=== PATIENT | female | born 1930 | race Caucasian/White ===

== ENCOUNTER 2016-03-14 11:09 | Inpatient (IN) | payer OTHER ==
[~2016-03-14] VITALS: Ht 162.6 cm; Wt 44.4 kg
[~2016-03-14 11:09] MED LIST: CLEOCIN300 MG PO; OXYCODONE HCL5 MG PO
[2016-03-14 12:09] LABS: EOSINOPHIL (%) 1.9 % (0-5); EOSINOPHIL COUNT 0.1 K/uL (0-0.3); LYMPHOCYTE COUNT 0.6 K/uL (1.0-2.8); MCH 30.6 PG (29.0-34.0); MCHC 30.7 G/DL (30.0-36.0); MCV 99.7 FL (83-99); MEAN PLAT.VOLUME 9.7 uM^3 (9.5-12.4); MONOCYTE (%) 9.2 % (3-12); MONOCYTE COUNT 0.5 K/uL (0-0.8); NEUTROPHIL (%) 76.2 % (45-76); PLATELET COUNT 212 K/uL (156-360); RBC DIS.WIDTH-CV 13.5 % (11.8-14.6); RBC DIS.WIDTH-SD 47.1 % (39-53); RED BLOOD COUNT 3.01 M/uL (3.80-5.20); WHITE BLOOD COUNT 5.2 K/uL (4.1-10.2)
[2016-03-14 12:28] LABS: CHLORIDE 117 mEq/L (99-109); POTASSIUM 5.2 mEq/L (3.7-5.4); SODIUM 140 mEq/L (136-147)
[2016-03-14 12:30] LABS: GLUCOSE 122 mg/dL (70-99)
[2016-03-14 12:31] LABS: ANION GAP 11 MEQ/L (2-14)
[2016-03-14 12:33] LABS: GFR ESTIMATE (CALCULATED) 11 mL/min/
[2016-03-14 12:34] LABS: UREA NITROGEN (BUN) 70 mg/dL (9-23)
[2016-03-14] MEDS ORDERED: TRAMADOL HCL50 MG PO (13:03)
[2016-03-14] MEDS ORDERED: METOPROLOL SUCC25 MG PO (13:04)
[2016-03-14] MEDS ORDERED: AMITRIPTYLINE H10 MG PO (13:04)
[2016-03-14] MEDS ORDERED: ROPINIROLE HC0.25 MG PO (13:04)
[2016-03-14] MEDS ORDERED: GABAPENTIN100 MG PO (13:04)
[2016-03-14] MEDS ORDERED: LASIX20 MG PO (13:05)
[2016-03-14] MEDS ORDERED: SYMBICORT60 INHALAT IH (13:07)
[2016-03-14] MEDS ORDERED: LOTENSIN10 MG PO (13:07)
[2016-03-14] MEDS ORDERED: PROCARDIA XL30 MG PO (13:07)
[2016-03-14] MEDS ORDERED: ATORVASTATIN CA20 MG PO (13:08)
[2016-03-14] MEDS ORDERED: WELCHOL625 MG PO (13:08)
[2016-03-14 13:59] LABS: ADD MIUA? YES; BILIRUBIN NEGATIVE; BLOOD TRACE; COLOR YELLOW ((YELLOW)); GLUCOSE (STRIP) NEGATIVE; KETONES NEGATIVE; LEUKOCYTES LARGE; NITRITE POSITIVE; PROTEIN (STRIP) 30; SPECIFIC GRAVITY 1.018 (1.000-1.030); UROBILINOGEN 0.2 MG/DL (0.2-1.0)
[2016-03-14 14:23] LABS: BACTERIA 1+; CASTS NONE SEEN /LPF; CRYSTALS NONE SEEN; EPITHELIAL CELLS RARE; MUCUS NONE SEEN; RED BLOOD CELLS RARE /HPF (0-5); WHITE BLOOD CELLS TNTC /HPF (0-5)
[2016-03-14 16:07] VITALS: BP 164/69
[2016-03-14 19:41] VITALS: BP 164/73
[2016-03-14 23:43] VITALS: BP 167/67
[2016-03-15 03:45] VITALS: BP 133/65
[2016-03-15 07:23] LABS: EOSINOPHIL (%) 2.7 % (0-5); EOSINOPHIL COUNT 0.1 K/uL (0-0.3); HEMATOCRIT 27.9 % (36.0-46.0); IMMATURE GRANULOCYTE (%) 0.2 % (0.0-0.7); LYMPHOCYTE COUNT 1.3 K/uL (1.0-2.8); MCH 30.4 PG (29.0-34.0); MCHC 31.5 G/DL (30.0-36.0); MCV 96.5 FL (83-99); MEAN PLAT.VOLUME 9.9 uM^3 (9.5-12.4); MONOCYTE (%) 13.8 % (3-12); MONOCYTE COUNT 0.6 K/uL (0-0.8); NEUTROPHIL (%) 53.9 % (45-76); NEUTROPHIL COUNT 2.4 K/uL (1.8-6.4); PLATELET COUNT 217 K/uL (156-360); RBC DIS.WIDTH-CV 13.5 % (11.8-14.6); RBC DIS.WIDTH-SD 47.8 % (39-53); RED BLOOD COUNT 2.89 M/uL (3.80-5.20); WHITE BLOOD COUNT 4.5 K/uL (4.1-10.2)
[2016-03-15 07:47] LABS: ANION GAP 10 MEQ/L (2-14); CHLORIDE 112 MEQ/L (99-109); GLUCOSE 102 mg/dL (70-99); POTASSIUM 4.5 MEQ/L (3.7-5.4); SAMPLE HEMOLYSIS CHECK 0; SAMPLE ICTERIC CHECK 0; SAMPLE LIPEMIA CHECK 0; SODIUM 143 MEQ/L (136-147); UREA NITROGEN (BUN) 59 mg/dL (9-23)
[2016-03-15 07:48] LABS: GFR ESTIMATE (CALCULATED) 15 mL/min/
[2016-03-15 08:16] VITALS: BP 177/76
[2016-03-15 10:29] LABS: VANCOMYCIN, TROUGH 10.4 MCG/ML (10-20)
[2016-03-15 11:56] VITALS: BP 132/73
[2016-03-15 17:22] VITALS: BP 148/72
[2016-03-15 19:38] VITALS: BP 155/68
[2016-03-15 23:27] VITALS: BP 148/66
[2016-03-16 03:37] VITALS: BP 141/62
[2016-03-16 06:05] VITALS: BP 147/65
[2016-03-16 06:36] LABS: EOSINOPHIL (%) 0.4 % (0-5); HEMATOCRIT 26.2 % (36.0-46.0); LYMPHOCYTE COUNT 0.9 K/uL (1.0-2.8); MCH 30.7 PG (29.0-34.0); MCHC 32.1 G/DL (30.0-36.0); MCV 95.6 FL (83-99); MEAN PLAT.VOLUME 9.7 uM^3 (9.5-12.4); MONOCYTE COUNT 0.6 K/uL (0-0.8); NEUTROPHIL (%) 72.3 % (45-76); PLATELET COUNT 208 K/uL (156-360); RBC DIS.WIDTH-CV 13.4 % (11.8-14.6); RBC DIS.WIDTH-SD 46.7 % (39-53); RED BLOOD COUNT 2.74 M/uL (3.80-5.20); WHITE BLOOD COUNT 5.5 K/uL (4.1-10.2)
[2016-03-16 06:59] LABS: ANION GAP 9 MEQ/L (2-14); CHLORIDE 106 MEQ/L (99-109); GLUCOSE 147 mg/dL (70-99); POTASSIUM 3.9 MEQ/L (3.7-5.4); SAMPLE HEMOLYSIS CHECK 0; SAMPLE ICTERIC CHECK 0; SAMPLE LIPEMIA CHECK 0; SODIUM 143 MEQ/L (136-147); UREA NITROGEN (BUN) 56 mg/dL (9-23)
[2016-03-16 07:00] LABS: GFR ESTIMATE (CALCULATED) 18 mL/min/; VANCOMYCIN, TROUGH 15.3 MCG/ML (10-20)
[2016-03-16 11:47] VITALS: BP 157/76
[2016-03-16 15:32] VITALS: BP 151/70
[2016-03-16 19:24] VITALS: BP 168/71
[2016-03-17] VITALS (8 sets, daily range): BP systolic 130–175; BP diastolic 67–80
[2016-03-17 06:15] LABS: ANION GAP 9 MEQ/L (2-14); CHLORIDE 105 MEQ/L (99-109); GFR ESTIMATE (CALCULATED) 20 mL/min/; GLUCOSE 104 mg/dL (70-99); IRON 27 MCG/DL (35-150); POTASSIUM 4.1 MEQ/L (3.7-5.4); SAMPLE HEMOLYSIS CHECK 0; SAMPLE ICTERIC CHECK 0; SAMPLE LIPEMIA CHECK 0; SODIUM 142 MEQ/L (136-147); UREA NITROGEN (BUN) 44 mg/dL (9-23); VANCOMYCIN, TROUGH 19.6 MCG/ML (10-20)
[2016-03-18 04:10] VITALS: BP 176/78
[2016-03-18 06:48] VITALS: BP 169/85
[2016-03-18 07:28] LABS: EOSINOPHIL (%) 2.4 % (0-5); EOSINOPHIL COUNT 0.1 K/uL (0-0.3); HEMATOCRIT 28.1 % (36.0-46.0); IMMATURE GRANULOCYTE (%) 0.2 % (0.0-0.7); LYMPHOCYTE COUNT 0.9 K/uL (1.0-2.8); MONOCYTE (%) 11.7 % (3-12); MONOCYTE COUNT 0.6 K/uL (0-0.8); NEUTROPHIL COUNT 3.4 K/uL (1.8-6.4); PLATELET COUNT 218 K/uL (156-360); RBC DIS.WIDTH-CV 13.6 % (11.8-14.6); RBC DIS.WIDTH-SD 49.8 % (39-53); RED BLOOD COUNT 2.81 M/uL (3.80-5.20)
[2016-03-18 07:33] LABS: ANION GAP 9 MEQ/L (2-14); CHLORIDE 104 MEQ/L (99-109); GFR ESTIMATE (CALCULATED) 21 mL/min/; GLUCOSE 94 mg/dL (70-99); POTASSIUM 4.7 MEQ/L (3.7-5.4); SAMPLE HEMOLYSIS CHECK 0; SAMPLE ICTERIC CHECK 0; SAMPLE LIPEMIA CHECK 0; SODIUM 142 MEQ/L (136-147); UREA NITROGEN (BUN) 38 mg/dL (9-23)
[2016-03-18 12:00] VITALS: BP 160/82
[2016-03-18 16:30] VITALS: BP 168/72
[2016-03-18 19:48] VITALS: BP 142/63
[2016-03-19] VITALS (7 sets, daily range): BP systolic 127–160; BP diastolic 60–89
[2016-03-19 07:13] LABS: EOSINOPHIL (%) 2.5 % (0-5); EOSINOPHIL COUNT 0.1 K/uL (0-0.3); HEMATOCRIT 29.4 % (36.0-46.0); LYMPHOCYTE COUNT 0.6 K/uL (1.0-2.8); MCH 30.2 PG (29.0-34.0); MCHC 30.3 G/DL (30.0-36.0); MCV 99.7 FL (83-99); MEAN PLAT.VOLUME 9.7 uM^3 (9.5-12.4); MONOCYTE (%) 12.1 % (3-12); MONOCYTE COUNT 0.5 K/uL (0-0.8); NEUTROPHIL (%) 71.7 % (45-76); NEUTROPHIL COUNT 3.2 K/uL (1.8-6.4); PLATELET COUNT 211 K/uL (156-360); RBC DIS.WIDTH-CV 13.5 % (11.8-14.6); RBC DIS.WIDTH-SD 49.4 % (39-53); RED BLOOD COUNT 2.95 M/uL (3.80-5.20); WHITE BLOOD COUNT 4.5 K/uL (4.1-10.2)
[2016-03-19 07:42] LABS: ALKALINE PHOSPHATASE 83 IU/L (3-129); ANION GAP 10 MEQ/L (2-14); ANION GAP 8 MEQ/L (2-14); CHLORIDE 102 MEQ/L (99-109); GFR ESTIMATE (CALCULATED) 21 mL/min/; GFR ESTIMATE (CALCULATED) 24 mL/min/; GLUCOSE 92 mg/dL (70-99); GLUCOSE 98 mg/dL (70-99); POTASSIUM 4.2 MEQ/L (3.7-5.4); SAMPLE HEMOLYSIS CHECK 0; SAMPLE ICTERIC CHECK 0; SAMPLE LIPEMIA CHECK 0; SODIUM 139 MEQ/L (136-147); TOTAL BILIRUBIN 0.3 MG/DL (0.0-1.0); UREA NITROGEN (BUN) 35 mg/dL (9-23); UREA NITROGEN (BUN) 36 mg/dL (9-23)
[2016-03-19 10:26] LABS: BASE EXCESS 5.5 mEq/L (-3 to +3); BICARBONATE 29.9 mEq/L (22-26); CARBOXY HGB 0 % (0-5); COMMENTS - BLOOD GASES A+C+; DEVICE HFNC; METHEMOGLOBIN 0.5 % (0-1.5); O2 FLOW 8 L/MIN; PCO2 42 mm Hg (35-45); PO2 77 mm Hg (80-100); SITE RR; pH 7.46 (7.35-7.45)
[2016-03-20 03:54] VITALS: BP 140/66
[2016-03-20 07:35] LABS: EOSINOPHIL (%) 5.1 % (0-5); EOSINOPHIL COUNT 0.2 K/uL (0-0.3); HEMATOCRIT 29.5 % (36.0-46.0); LYMPHOCYTE COUNT 0.7 K/uL (1.0-2.8); MCH 30.7 PG (29.0-34.0); MCHC 30.8 G/DL (30.0-36.0); MCV 99.7 FL (83-99); MEAN PLAT.VOLUME 10.3 uM^3 (9.5-12.4); MONOCYTE (%) 12.3 % (3-12); MONOCYTE COUNT 0.6 K/uL (0-0.8); NEUTROPHIL (%) 66.6 % (45-76); PLATELET COUNT 225 K/uL (156-360); RBC DIS.WIDTH-CV 13.5 % (11.8-14.6); RED BLOOD COUNT 2.96 M/uL (3.80-5.20); WHITE BLOOD COUNT 4.5 K/uL (4.1-10.2)
[2016-03-20 08:01] LABS: ALKALINE PHOSPHATASE 86 IU/L (3-129); ANION GAP 10 MEQ/L (2-14); CHLORIDE 101 MEQ/L (99-109); GFR ESTIMATE (CALCULATED) 20 mL/min/; GLUCOSE 105 mg/dL (70-99); POTASSIUM 4.1 MEQ/L (3.7-5.4); SAMPLE HEMOLYSIS CHECK 0; SAMPLE ICTERIC CHECK 0; SAMPLE LIPEMIA CHECK 0; SODIUM 140 MEQ/L (136-147); TOTAL BILIRUBIN 0.3 MG/DL (0.0-1.0); UREA NITROGEN (BUN) 38 mg/dL (9-23)
[2016-03-20 08:06] VITALS: BP 128/70
[2016-03-20 10:50] VITALS: BP 133/63
[2016-03-20 16:19] VITALS: BP 140/69
[2016-03-20 17:58] VITALS: BP 154/67
[2016-03-20 23:31] VITALS: BP 138/71
[2016-03-21 03:39] VITALS: BP 155/69
[2016-03-21 06:13] LABS: EOSINOPHIL (%) 4.9 % (0-5); EOSINOPHIL COUNT 0.2 K/uL (0-0.3); HEMATOCRIT 27.2 % (36.0-46.0); IMMATURE GRANULOCYTE (%) 0.2 % (0.0-0.7); LYMPHOCYTE COUNT 0.8 K/uL (1.0-2.8); MCH 30.3 PG (29.0-34.0); MCHC 30.5 G/DL (30.0-36.0); MCV 99.3 FL (83-99); MEAN PLAT.VOLUME 10.2 uM^3 (9.5-12.4); MONOCYTE (%) 11.2 % (3-12); MONOCYTE COUNT 0.6 K/uL (0-0.8); NEUTROPHIL COUNT 3.3 K/uL (1.8-6.4); PLATELET COUNT 219 K/uL (156-360); RBC DIS.WIDTH-CV 13.6 % (11.8-14.6); RED BLOOD COUNT 2.74 M/uL (3.80-5.20); WHITE BLOOD COUNT 4.9 K/uL (4.1-10.2)
[2016-03-21 06:45] LABS: ALKALINE PHOSPHATASE 85 IU/L (3-129); ANION GAP 9 MEQ/L (2-14); CHLORIDE 102 MEQ/L (99-109); GFR ESTIMATE (CALCULATED) 19 mL/min/; GLUCOSE 95 mg/dL (70-99); POTASSIUM 4.1 MEQ/L (3.7-5.4); SAMPLE HEMOLYSIS CHECK 0; SAMPLE ICTERIC CHECK 0; SAMPLE LIPEMIA CHECK 0; SODIUM 138 MEQ/L (136-147); TOTAL BILIRUBIN 0.3 MG/DL (0.0-1.0); UREA NITROGEN (BUN) 46 mg/dL (9-23)
[2016-03-21 07:39] VITALS: BP 156/70
[2016-03-21 11:53] VITALS: BP 148/69
[2016-03-21 16:00] VITALS: BP 152/70
[2016-03-21 19:23] VITALS: BP 154/69
[2016-03-22] VITALS: BP 158/74
[2016-03-22 03:43] VITALS: BP 152/72
[2016-03-22 07:09] LABS: ANION GAP 9 MEQ/L (2-14); CHLORIDE 104 MEQ/L (99-109); GFR ESTIMATE (CALCULATED) 19 mL/min/; GLUCOSE 94 mg/dL (70-99); POTASSIUM 4.2 MEQ/L (3.7-5.4); SAMPLE HEMOLYSIS CHECK 0; SAMPLE ICTERIC CHECK 0; SAMPLE LIPEMIA CHECK 0; SODIUM 141 MEQ/L (136-147); UREA NITROGEN (BUN) 47 mg/dL (9-23)
[2016-03-22 07:48] VITALS: BP 146/64
[2016-03-22 09:00] LABS: HEMATOCRIT 27.7 % (36.0-46.0); MCH 30.5 PG (29.0-34.0); MCV 101.8 FL (83-99); MEAN PLAT.VOLUME 10.1 uM^3 (9.5-12.4); PLATELET COUNT 232 K/uL (156-360); RBC DIS.WIDTH-SD 50.5 % (39-53); RED BLOOD COUNT 2.72 M/uL (3.80-5.20); WHITE BLOOD COUNT 4.5 K/uL (4.1-10.2)
[2016-03-22 11:28] VITALS: BP 156/67
[2016-03-22 15:42] VITALS: BP 159/72
[2016-03-22 19:30] VITALS: BP 152/70
[2016-03-23] VITALS: BP 148/77
[2016-03-23 04:00] VITALS: BP 151/67
[2016-03-23 07:19] LABS: ANION GAP 9 MEQ/L (2-14); CHLORIDE 103 MEQ/L (99-109); GFR ESTIMATE (CALCULATED) 20 mL/min/; GLUCOSE 96 mg/dL (70-99); POTASSIUM 4.3 MEQ/L (3.7-5.4); SAMPLE HEMOLYSIS CHECK 0; SAMPLE ICTERIC CHECK 0; SAMPLE LIPEMIA CHECK 0; SODIUM 139 MEQ/L (136-147); UREA NITROGEN (BUN) 47 mg/dL (9-23)
[2016-03-23 07:37] VITALS: BP 143/67
[2016-03-23 11:04] VITALS: BP 144/63
[2016-03-23 15:42] VITALS: BP 181/76
[2016-03-23 20:00] VITALS: BP 165/70
[2016-03-24 00:14] VITALS: BP 177/79
[2016-03-24 04:00] VITALS: BP 166/79
[2016-03-24 08:02] VITALS: BP 144/67
[2016-03-24 09:25] LABS: HEMATOCRIT 32.1 % (36.0-46.0); MCH 30.6 PG (29.0-34.0); MCHC 30.2 G/DL (30.0-36.0); MCV 101.3 FL (83-99); MEAN PLAT.VOLUME 9.8 uM^3 (9.5-12.4); PLATELET COUNT 230 K/uL (156-360); RBC DIS.WIDTH-CV 14.3 % (11.8-14.6); RBC DIS.WIDTH-SD 50.7 % (39-53); RED BLOOD COUNT 3.17 M/uL (3.80-5.20); WHITE BLOOD COUNT 5.7 K/uL (4.1-10.2)
[2016-03-24 09:47] LABS: ANION GAP 11 MEQ/L (2-14); CHLORIDE 104 MEQ/L (99-109); GFR ESTIMATE (CALCULATED) 20 mL/min/; SAMPLE HEMOLYSIS CHECK 0; SAMPLE ICTERIC CHECK 0; SAMPLE LIPEMIA CHECK 0; SODIUM 140 MEQ/L (136-147); UREA NITROGEN (BUN) 53 mg/dL (9-23)
[2016-03-24 09:48] LABS: GLUCOSE 186 mg/dL (70-99)
[2016-03-24 10:54] VITALS: BP 146/67
[2016-03-24] MEDS ORDERED: CEPHALEXIN500 MG PO (13:57)
[2016-03-24] MEDS ORDERED: SPIRIVA RESPIMAT4 GM IH (13:57)
[2016-03-24] MEDS ORDERED: ELIQUIS2.5 MG PO (13:57)
[2016-03-24] MEDS ORDERED: FUROSEMIDE20 MG PO (13:57)
[2016-03-24 15:09] VITALS: BP 153/66
== END 2016-03-24 16:10 | disposition home or self-care (01) | DRG 682 ==
LOC: EME 11:09 → EDOF 12:46 → 2EAST 12:46 → EDOF 12:46 → 2EAST 15:40 → 5SOUTH 03-20 17:20
PROVIDERS: Emergency Medicine; Hospitalist; Internal Medicine; Internal Medicine Nephrology
PROC: 0HDLXZZ Extraction of Left Lower Leg Skin, External Approach (ICD-10-PCS; principal; 2016-03-15)
DX: N17.0 Acute kidney failure with tubular necrosis (principal); J96.01 Acute respiratory failure with hypoxia; N39.0 Urinary tract infection, site not specified; E87.2 Acidosis; L03.116 Cellulitis of left lower limb; I50.22 Chronic systolic (congestive) heart failure; E44.0 Moderate protein-calorie malnutrition; Z68.1 Body mass index [BMI] 19.9 or less, adult; B95.61 Methicillin susceptible Staphylococcus aureus infection as the cause of diseases classified elsewhere; E86.0 Dehydration; T46.4X5A Adverse effect of angiotensin-converting-enzyme inhibitors, initial encounter; S80.12XA Contusion of left lower leg, initial encounter; L89.310 Pressure ulcer of right buttock, unstageable; I48.0 Paroxysmal atrial fibrillation; I35.0 Nonrheumatic aortic (valve) stenosis; I27.2 Other secondary pulmonary hypertension; J44.9 Chronic obstructive pulmonary disease, unspecified; I12.9 Hypertensive chronic kidney disease with stage 1 through stage 4 chronic kidney disease, or unspecified chronic kidney disease; N18.3 Chronic kidney disease, stage 3 (moderate); D63.1 Anemia in chronic kidney disease; N28.1 Cyst of kidney, acquired; E11.22 Type 2 diabetes mellitus with diabetic chronic kidney disease; E78.5 Hyperlipidemia, unspecified; M19.90 Unspecified osteoarthritis, unspecified site; Z66 Do not resuscitate; Z87.891 Personal history of nicotine dependence; Z93.3 Colostomy status
CPT/HCPCS: 36415; 36600; 71010; 71020; 71250; 73718; 76770; 78582; 80048; 80053; 80069; 80202; 81003; 82570; 82607; 82746; 82803; 83540; 83735; 83970; 84100; 84156; 84466; 84550; 85025; 85027; 86038; 87040; 87070; 87075; 87077; 87147; 87186; 87205; 93306; 93971; 94010; 94640; 94640 76; 94760; 94799; 97530 GO; 99202; 99281; 99285; A9540; A9567; J0696; J1644; J1756; J1940; J2270; J2405; J3370; J7030; J7050; J7070

== ENCOUNTER 2016-03-30 20:24 | Inpatient (IN) | payer OTHER ==
[~2016-03-30] VITALS: Ht 162.6 cm; Wt 33.8 kg
[~2016-03-30 20:24] MED LIST changes: +AMITRIPTYLINE H10 MG PO; +ATORVASTATIN CA20 MG PO; +CEPHALEXIN500 MG PO; +ELIQUIS2.5 MG PO; +FUROSEMIDE20 MG PO; +GABAPENTIN100 MG PO; +LASIX20 MG PO; +LOTENSIN10 MG PO; +METOPROLOL SUCC25 MG PO; +PROCARDIA XL30 MG PO; +ROPINIROLE HC0.25 MG PO; +SPIRIVA RESPIMAT4 GM IH; +SYMBICORT60 INHALAT IH; +TRAMADOL HCL50 MG PO; +WELCHOL625 MG PO
[2016-03-30 20:56] LABS: HEMATOCRIT 34.1 % (36.0-46.0); MCH 30.8 PG (29.0-34.0); MCHC 30.2 G/DL (30.0-36.0); MCV 102.1 FL (83-99); MEAN PLAT.VOLUME 9.1 uM^3 (9.5-12.4); PLATELET COUNT 294 K/uL (156-360); RBC DIS.WIDTH-CV 14.9 % (11.8-14.6); RBC DIS.WIDTH-SD 53.2 % (39-53); RED BLOOD COUNT 3.34 M/uL (3.80-5.20); WHITE BLOOD COUNT 8.8 K/uL (4.1-10.2)
[2016-03-30 21:17] LABS: CHLORIDE 112 mEq/L (99-109); SODIUM 139 mEq/L (136-147)
[2016-03-30 21:18] LABS: GLUCOSE 174 mg/dL (70-99)
[2016-03-30 21:19] LABS: POTASSIUM 5.5 mEq/L (3.7-5.4)
[2016-03-30 21:20] LABS: ANION GAP 9 MEQ/L (2-14)
[2016-03-30 21:22] LABS: GFR ESTIMATE (CALCULATED) 16 mL/min/
[2016-03-30 21:23] LABS: UREA NITROGEN (BUN) 67 mg/dL (9-23)
[2016-03-31 02:20] LABS: ADD MIUA? YES; BILIRUBIN NEGATIVE; BLOOD SMALL; COLOR STRAW ((YELLOW)); GLUCOSE (STRIP) NEGATIVE; KETONES NEGATIVE; LEUKOCYTES NEGATIVE; NITRITE NEGATIVE; PROTEIN (STRIP) NEGATIVE; SPECIFIC GRAVITY 1.009 (1.000-1.030); UROBILINOGEN 0.2 MG/DL (0.2-1.0)
[2016-03-31 02:48] LABS: BACTERIA RARE /HPF; EPITHELIAL CELLS RARE /HPF; MUCUS TRACE /LPF; RED BLOOD CELLS 0-5 /HPF (0-5); WHITE BLOOD CELLS 0-5 /HPF (0-5)
[2016-03-31 02:53] LABS: TROP-I INTERPRETATION NEGATIVE; TROPONIN-I 0.11 ng/mL (0.0-0.30)
[2016-03-31 08:15] LABS: EOSINOPHIL (%) 0 % (0-5); HEMATOCRIT 28.6 % (36.0-46.0); LYMPHOCYTE COUNT 0.3 K/uL (1.0-2.8); MCHC 30.4 G/DL (30.0-36.0); MCV 101.8 FL (83-99); MEAN PLAT.VOLUME 9.7 uM^3 (9.5-12.4); MONOCYTE (%) 5.1 % (3-12); MONOCYTE COUNT 0.2 K/uL (0-0.8); NEUTROPHIL (%) 84.9 % (45-76); NEUTROPHIL COUNT 2.6 K/uL (1.8-6.4); PLATELET COUNT 226 K/uL (156-360); RBC DIS.WIDTH-CV 14.6 % (11.8-14.6); RBC DIS.WIDTH-SD 52.2 % (39-53); RED BLOOD COUNT 2.81 M/uL (3.80-5.20); WHITE BLOOD COUNT 3.1 K/uL (4.1-10.2)
[2016-03-31 08:55] LABS: ALKALINE PHOSPHATASE 100 IU/L (3-129); ANION GAP 9 MEQ/L (2-14); CHLORIDE 110 MEQ/L (99-109); GFR ESTIMATE (CALCULATED) 16 mL/min/; GLUCOSE 235 mg/dL (70-99); POTASSIUM 5.3 MEQ/L (3.7-5.4); SAMPLE HEMOLYSIS CHECK 0; SAMPLE ICTERIC CHECK 0; SAMPLE LIPEMIA CHECK 0; SODIUM 138 MEQ/L (136-147); TOTAL BILIRUBIN 0.3 MG/DL (0.0-1.0); UREA NITROGEN (BUN) 71 mg/dL (9-23)
[2016-03-31 09:01] LABS: TROP-I INTERPRETATION INDETERMINATE; TROPONIN-I 0.47 ng/mL (0.0-0.30)
[2016-03-31 14:40] LABS: TROP-I INTERPRETATION POSITIVE
[2016-03-31 14:45] LABS: TROPONIN-I 0.94 ng/mL (0.0-0.30)
[2016-03-31 16:15] VITALS: BP 164/68; BP 164/86
[2016-03-31 20:00] VITALS: BP 177/74
[2016-04-01 00:30] VITALS: BP 159/70
[2016-04-01 04:05] VITALS: BP 175/77
[2016-04-01 09:00] VITALS: BP 196/90
[2016-04-01 10:39] LABS: ANION GAP 9 MEQ/L (2-14); CHLORIDE 109 MEQ/L (99-109); GFR ESTIMATE (CALCULATED) 19 mL/min/; GLUCOSE 285 mg/dL (70-99); POTASSIUM 4.4 MEQ/L (3.7-5.4); SAMPLE HEMOLYSIS CHECK 0; SAMPLE ICTERIC CHECK 0; SAMPLE LIPEMIA CHECK 0; SODIUM 140 MEQ/L (136-147); UREA NITROGEN (BUN) 71 mg/dL (9-23)
[2016-04-01 11:44] LABS: EOSINOPHIL (%) 0 % (0-5); HEMATOCRIT 26.9 % (36.0-46.0); IMMATURE GRANULOCYTE (%) 0.2 % (0.0-0.7); LYMPHOCYTE COUNT 0.3 K/uL (1.0-2.8); MEAN PLAT.VOLUME 9.8 uM^3 (9.5-12.4); MONOCYTE (%) 1.5 % (3-12); MONOCYTE COUNT 0.1 K/uL (0-0.8); NEUTROPHIL (%) 91.9 % (45-76); NEUTROPHIL COUNT 4.2 K/uL (1.8-6.4); PLATELET COUNT 233 K/uL (156-360); RBC DIS.WIDTH-CV 15.6 % (11.8-14.6); RBC DIS.WIDTH-SD 56.9 % (39-53); RED BLOOD COUNT 2.69 M/uL (3.80-5.20)
[2016-04-01 11:45] LABS: WHITE BLOOD COUNT 4.5 K/uL (4.1-10.2)
[2016-04-01 14:21] VITALS: BP 172/78
[2016-04-01 16:09] LABS: POINT-OF-CARE METER ID UU13113698
[2016-04-01 17:44] VITALS: BP 171/76
[2016-04-01 19:20] VITALS: BP 170/72
[2016-04-01 21:49] LABS: POINT-OF-CARE METER ID UU13113698
[2016-04-02] VITALS (7 sets, daily range): BP systolic 160–196; BP diastolic 73–86
[2016-04-02 07:06] LABS: EOSINOPHIL (%) 0 % (0-5); HEMATOCRIT 28.8 % (36.0-46.0); IMMATURE GRANULOCYTE (%) 0.2 % (0.0-0.7); LYMPHOCYTE COUNT 0.4 K/uL (1.0-2.8); MCH 31.1 PG (29.0-34.0); MCHC 30.9 G/DL (30.0-36.0); MCV 100.7 FL (83-99); MONOCYTE (%) 2.3 % (3-12); MONOCYTE COUNT 0.1 K/uL (0-0.8); NEUTROPHIL (%) 90.7 % (45-76); NEUTROPHIL COUNT 4.7 K/uL (1.8-6.4); PLATELET COUNT 243 K/uL (156-360); RBC DIS.WIDTH-CV 15.3 % (11.8-14.6); RED BLOOD COUNT 2.86 M/uL (3.80-5.20); WHITE BLOOD COUNT 5.2 K/uL (4.1-10.2)
[2016-04-02 07:15] LABS: ANION GAP 13 MEQ/L (2-14); CHLORIDE 109 MEQ/L (99-109); GFR ESTIMATE (CALCULATED) 21 mL/min/; GLUCOSE 164 mg/dL (70-99); MAGNESIUM 2.2 mg/dl (1.3-2.7); POTASSIUM 4.2 MEQ/L (3.7-5.4); SAMPLE HEMOLYSIS CHECK 0; SAMPLE ICTERIC CHECK 0; SAMPLE LIPEMIA CHECK 0; SODIUM 141 MEQ/L (136-147); UREA NITROGEN (BUN) 74 mg/dL (9-23)
[2016-04-02 08:22] LABS: POINT-OF-CARE METER ID UU13113698; POINT-OF-CARE USER ID ENVKC36
[2016-04-02 12:31] LABS: POINT-OF-CARE METER ID UU13113781; POINT-OF-CARE USER ID ENVKC36
[2016-04-02] MEDS ORDERED: ASPIR-LOW81 MG PO (17:39)
[2016-04-02] MEDS ORDERED: FUROSEMIDE20 MG PO ×2 (17:39)
[2016-04-02] MEDS ORDERED: LISINOPRIL5 MG PO (17:39)
[2016-04-02] MEDS ORDERED: CEPHALEXIN500 MG PO (17:39)
[2016-04-02] MEDS ORDERED: CARVEDILOL25 MG PO (17:39)
[2016-04-03 00:29] VITALS: BP 152/70
[2016-04-03 04:01] VITALS: BP 164/80
[2016-04-03 07:27] LABS: ANION GAP 12 MEQ/L (2-14); CHLORIDE 108 MEQ/L (99-109); GFR ESTIMATE (CALCULATED) 19 mL/min/; GLUCOSE 141 mg/dL (70-99); POTASSIUM 4.2 MEQ/L (3.7-5.4); SAMPLE HEMOLYSIS CHECK 0; SAMPLE ICTERIC CHECK 0; SAMPLE LIPEMIA CHECK 0; SODIUM 140 MEQ/L (136-147); UREA NITROGEN (BUN) 85 mg/dL (9-23)
[2016-04-03 09:11] VITALS: BP 186/78
[2016-04-03] MEDS ORDERED: PREDNISONE20 MG PO ×2 (12:02→12:03)
[2016-04-03 12:20] VITALS: BP 176/98
[2016-04-03] MEDS ORDERED: OXYGEN MC ×3 (12:34→14:39)
== END 2016-04-03 15:12 | disposition home or self-care (01) | DRG 189 ==
LOC: EME → EDBD 20:24 → EME 20:24 → EDOF 03-31 01:29 → 4EAST 03-31 01:29
PROVIDERS: Internal Medicine; Internal Medicine Nephrology; Physician Assistant; Student in an Organized Health Care Education/Training Program
DX: J96.01 Acute respiratory failure with hypoxia (principal); I50.21 Acute systolic (congestive) heart failure; N17.9 Acute kidney failure, unspecified; L03.115 Cellulitis of right lower limb; J44.1 Chronic obstructive pulmonary disease with (acute) exacerbation; L03.116 Cellulitis of left lower limb; I42.9 Cardiomyopathy, unspecified; N18.3 Chronic kidney disease, stage 3 (moderate); I12.9 Hypertensive chronic kidney disease with stage 1 through stage 4 chronic kidney disease, or unspecified chronic kidney disease; E87.5 Hyperkalemia; I48.0 Paroxysmal atrial fibrillation; I27.2 Other secondary pulmonary hypertension; D63.1 Anemia in chronic kidney disease; I35.0 Nonrheumatic aortic (valve) stenosis; N28.1 Cyst of kidney, acquired; R79.89 Other specified abnormal findings of blood chemistry; E11.22 Type 2 diabetes mellitus with diabetic chronic kidney disease; Z66 Do not resuscitate; Z51.5 Encounter for palliative care; Z87.891 Personal history of nicotine dependence
CPT/HCPCS: 71010; 80048; 80053; 81003; 82948; 83735; 83880; 84100; 84484; 85025; 85027; 93005; 94640; 94640 76; 94760; 94799; 99202; 99281; 99285; J0360; J1815; J1940; J2930; J7512

== ENCOUNTER 2016-05-06 10:08 | Inpatient (IN) | payer OTHER ==
[~2016-05-06] VITALS: Ht 162.6 cm; Wt 45.1 kg
[~2016-05-06 10:08] MED LIST changes: +ASPIR-LOW81 MG PO; +CARVEDILOL25 MG PO; +LISINOPRIL5 MG PO; +OXYGEN MC; +PREDNISONE20 MG PO
[2016-05-06 11:04] LABS: EOSINOPHIL (%) 1.4 % (0-5); EOSINOPHIL COUNT 0.1 K/uL (0-0.3); HEMATOCRIT 34.8 % (36.0-46.0); IMMATURE GRANULOCYTE (%) 0.2 % (0.0-0.7); INSTRUMENT ABS NEUTROPHIL CT 3.4 K/uL; LYMPHOCYTE COUNT 0.8 K/uL (1.0-2.8); MCH 31.1 PG (29.0-34.0); MCHC 29.3 G/DL (30.0-36.0); MCV 106.1 FL (83-99); MEAN PLAT.VOLUME 9.6 uM^3 (9.5-12.4); MONOCYTE (%) 11.2 % (3-12); MONOCYTE COUNT 0.6 K/uL (0-0.8); NEUTROPHIL COUNT 3.4 K/uL (1.8-6.4); PLATELET COUNT 163 K/uL (156-360); RBC DIS.WIDTH-SD 63.2 % (39-53); RED BLOOD COUNT 3.28 M/uL (3.80-5.20); WHITE BLOOD COUNT 4.9 K/uL (4.1-10.2)
[2016-05-06 11:14] LABS: CHLORIDE 116 mEq/L (99-109); SODIUM 141 mEq/L (136-147)
[2016-05-06 11:16] LABS: GLUCOSE 71 mg/dL (70-99)
[2016-05-06 11:17] LABS: ANION GAP 10 MEQ/L (2-14)
[2016-05-06 11:20] LABS: GFR ESTIMATE (CALCULATED) 13 mL/min/; UREA NITROGEN (BUN) 77 mg/dL (9-23)
[2016-05-06 11:33] LABS: POTASSIUM 6.2 mEq/L (3.7-5.4)
[2016-05-06] MEDS ORDERED: ELIQUIS2.5 MG PO (13:19)
[2016-05-06 13:20] LABS: POINT-OF-CARE METER ID UU13113702
[2016-05-06] MEDS ORDERED: FUROSEMIDE20 MG PO (13:21)
[2016-05-06] MEDS ORDERED: SANTYL30 GM TP (13:22)
[2016-05-06] MEDS ORDERED: PROCRIT10000 UNI1 IV (13:23)
[2016-05-06 14:45] VITALS: BP 210/72
[2016-05-06 15:55] VITALS: BP 190/96
[2016-05-06 17:30] VITALS: BP 172/88
[2016-05-06 18:29] LABS: ANION GAP 9 MEQ/L (2-14); CHLORIDE 117 MEQ/L (99-109); GFR ESTIMATE (CALCULATED) 15 mL/min/; POTASSIUM 5.7 MEQ/L (3.7-5.4); SAMPLE HEMOLYSIS CHECK 0; SAMPLE ICTERIC CHECK 0; SAMPLE LIPEMIA CHECK 0; SODIUM 144 MEQ/L (136-147); UREA NITROGEN (BUN) 70 mg/dL (9-23)
[2016-05-06 18:41] LABS: GLUCOSE 165 mg/dL (70-99)
[2016-05-06 19:51] VITALS: BP 185/82
[2016-05-06 20:16] VITALS: BP 165/88
[2016-05-06 23:36] VITALS: BP 166/78
[2016-05-07 03:28] VITALS: BP 168/78
[2016-05-07 07:11] VITALS: BP 196/68
[2016-05-07 08:30] VITALS: BP 180/80
[2016-05-07 08:57] LABS: EOSINOPHIL (%) 0.2 % (0-5); HEMATOCRIT 36.7 % (36.0-46.0); IMMATURE GRANULOCYTE (%) 0.2 % (0.0-0.7); INSTRUMENT ABS NEUTROPHIL CT 3.8 K/uL; LYMPHOCYTE COUNT 0.8 K/uL (1.0-2.8); MCH 30.8 PG (29.0-34.0); MCHC 28.9 G/DL (30.0-36.0); MCV 106.7 FL (83-99); MONOCYTE (%) 10.2 % (3-12); MONOCYTE COUNT 0.5 K/uL (0-0.8); NEUTROPHIL (%) 73.4 % (45-76); NEUTROPHIL COUNT 3.8 K/uL (1.8-6.4); PLATELET COUNT 164 K/uL (156-360); RBC DIS.WIDTH-SD 63.6 % (39-53); RED BLOOD COUNT 3.44 M/uL (3.80-5.20); WHITE BLOOD COUNT 5.2 K/uL (4.1-10.2)
[2016-05-07 09:22] LABS: ANION GAP 11 MEQ/L (2-14); CHLORIDE 112 MEQ/L (99-109); GFR ESTIMATE (CALCULATED) 15 mL/min/; GLUCOSE 135 mg/dL (70-99); POTASSIUM 5.2 MEQ/L (3.7-5.4); SAMPLE HEMOLYSIS CHECK 0; SAMPLE ICTERIC CHECK 0; SAMPLE LIPEMIA CHECK 0; SODIUM 143 MEQ/L (136-147); UREA NITROGEN (BUN) 66 mg/dL (9-23)
[2016-05-07 11:15] VITALS: BP 194/68
[2016-05-07 15:15] LABS: ADD MIUA? YES; BILIRUBIN NEGATIVE; BLOOD NEGATIVE; COLOR YELLOW ((YELLOW)); GLUCOSE (STRIP) 150; KETONES NEGATIVE; LEUKOCYTES TRACE; NITRITE NEGATIVE; PROTEIN (STRIP) NEGATIVE; UROBILINOGEN 0.2 MG/DL (0.2-1.0)
[2016-05-07 15:36] LABS: BACTERIA RARE /HPF; EPITHELIAL CELLS RARE /HPF; HYALINE CASTS 0-5 /LPF; MUCUS TRACE /LPF; RED BLOOD CELLS 0-5 /HPF (0-5); WHITE BLOOD CELLS 0-5 /HPF (0-5)
[2016-05-07 15:40] VITALS: BP 188/76
[2016-05-07 19:39] VITALS: BP 168/80
[2016-05-08 00:19] VITALS: BP 161/74
[2016-05-08 04:05] VITALS: BP 178/80
[2016-05-08 08:00] VITALS: BP 150/72
[2016-05-08 08:38] LABS: EOSINOPHIL (%) 1.3 % (0-5); EOSINOPHIL COUNT 0.1 K/uL (0-0.3); HEMATOCRIT 32.8 % (36.0-46.0); INSTRUMENT ABS NEUTROPHIL CT 3.6 K/uL; MCH 30.8 PG (29.0-34.0); MCHC 30.2 G/DL (30.0-36.0); MONOCYTE (%) 12.4 % (3-12); MONOCYTE COUNT 0.7 K/uL (0-0.8); NEUTROPHIL (%) 67.5 % (45-76); NEUTROPHIL COUNT 3.6 K/uL (1.8-6.4); PLATELET COUNT 181 K/uL (156-360); RBC DIS.WIDTH-CV 16.1 % (11.8-14.6); RBC DIS.WIDTH-SD 60.7 % (39-53); RED BLOOD COUNT 3.21 M/uL (3.80-5.20); WHITE BLOOD COUNT 5.3 K/uL (4.1-10.2)
[2016-05-08 08:44] LABS: MCV 102.2 FL (83-99)
[2016-05-08 09:05] LABS: ANION GAP 9 MEQ/L (2-14); CHLORIDE 112 MEQ/L (99-109); GFR ESTIMATE (CALCULATED) 15 mL/min/; GLUCOSE 93 mg/dL (70-99); POTASSIUM 5.2 MEQ/L (3.7-5.4); SAMPLE HEMOLYSIS CHECK 0; SAMPLE ICTERIC CHECK 0; SAMPLE LIPEMIA CHECK 0; SODIUM 140 MEQ/L (136-147); UREA NITROGEN (BUN) 63 mg/dL (9-23)
[2016-05-08 12:00] VITALS: BP 130/60
[2016-05-08 16:22] VITALS: BP 160/68
[2016-05-08] MEDS ORDERED: APRESOLINE50 MG PO (17:31)
[2016-05-08] MEDS ORDERED: BICITRA SOLUTI473 ML PO (17:50)
== END 2016-05-08 18:33 | disposition home or self-care (01) | DRG 190 ==
LOC: EME 10:08 → EDOF 12:44 → 2EASTP 12:44 → EDOF 13:16 → 2EASTP 14:29
PROVIDERS: Emergency Medicine; Family Medicine; Family Medicine Sports Medicine; Internal Medicine Nephrology
DX: J44.1 Chronic obstructive pulmonary disease with (acute) exacerbation (principal); J96.01 Acute respiratory failure with hypoxia; N17.9 Acute kidney failure, unspecified; N18.4 Chronic kidney disease, stage 4 (severe); I50.22 Chronic systolic (congestive) heart failure; E87.2 Acidosis; L97.329 Non-pressure chronic ulcer of left ankle with unspecified severity; E87.5 Hyperkalemia; I48.0 Paroxysmal atrial fibrillation; I12.9 Hypertensive chronic kidney disease with stage 1 through stage 4 chronic kidney disease, or unspecified chronic kidney disease; E11.22 Type 2 diabetes mellitus with diabetic chronic kidney disease; N28.1 Cyst of kidney, acquired; D63.1 Anemia in chronic kidney disease; E78.5 Hyperlipidemia, unspecified; K27.9 Peptic ulcer, site unspecified, unspecified as acute or chronic, without hemorrhage or perforation; F41.9 Anxiety disorder, unspecified; Z93.3 Colostomy status; Z87.891 Personal history of nicotine dependence
CPT/HCPCS: 36415; 71010; 80048; 80048 91; 80053; 80061; 81003; 82306 GA; 82607 GA; 82728; 82746 GA; 82948; 83036 GA; 83540; 84439; 84443; 84466; 85025; 85045; 93005; 94640; 94640 76; 94799; 99202; 99281; 99285; J1940; J7030

== ENCOUNTER 2016-07-22 02:17 | Inpatient (IN) | payer OTHER ==
[~2016-07-22] VITALS: Ht 165.1 cm; Wt 38.6 kg
[~2016-07-22 02:17] MED LIST changes: +APRESOLINE50 MG PO; +BICITRA SOLUTI473 ML PO; +PROCRIT10000 UNI1 IV; +SANTYL30 GM TP
[2016-07-22 02:30] VITALS: BP 175/75
[2016-07-22 02:55] LABS: HEMATOCRIT 27.1 % (36.0-46.0); MCH 31.6 PG (29.0-34.0); MCHC 29.9 G/DL (30.0-36.0); MCV 105.9 FL (83-99); MEAN PLAT.VOLUME 9.2 uM^3 (9.5-12.4); PLATELET COUNT 184 K/uL (156-360); RBC DIS.WIDTH-SD 62.5 % (39-53); RED BLOOD COUNT 2.56 M/uL (3.80-5.20); WHITE BLOOD COUNT 7.4 K/uL (4.1-10.2)
[2016-07-22 03:20] LABS: TROP-I INTERPRETATION NEGATIVE; TROPONIN-I 0.06 ng/mL (0.0-0.30)
[2016-07-22 03:31] LABS: BASE EXCESS 6.8 mEq/L (-3 to +3); BICARBONATE 31.3 mEq/L (22-26); CARBOXY HGB 0.9 % (0-5); METHEMOGLOBIN 0.8 % (0-1.5); PCO2 44 mm Hg (35-45); PO2 59 mm Hg (80-100); pH 7.46 (7.35-7.45)
[2016-07-22 03:32] LABS: COMMENTS - BLOOD GASES C+; DEVICE NC; O2 FLOW 5 L/MIN; SITE LR; TOTAL RESP RATE 23 resp/min
[2016-07-22 03:59] LABS: CHLORIDE 107 mEq/L (99-109); POTASSIUM 4.2 mEq/L (3.7-5.4); SODIUM 144 mEq/L (136-147)
[2016-07-22 04:02] LABS: ANION GAP 9 MEQ/L (2-14)
[2016-07-22 04:15] LABS: GLUCOSE 138 mg/dL (70-99)
[2016-07-22 04:19] LABS: GFR ESTIMATE (CALCULATED) 17 mL/min/; UREA NITROGEN (BUN) 43 mg/dL (9-23)
[2016-07-22 06:17] VITALS: BP 165/74
[2016-07-22] MEDS ORDERED: SPIRIVA RESPIMAT4 GM IH (06:25)
[2016-07-22] MEDS ORDERED: WELCHOL625 MG PO (06:29)
[2016-07-22] MEDS ORDERED: GABAPENTIN100 MG PO (06:31)
[2016-07-22] MEDS ORDERED: FAMOTIDINE40 MG PO (06:39)
[2016-07-22] MEDS ORDERED: FERROUS SULFAT325 MG PO (06:40)
[2016-07-22 07:37] VITALS: BP 171/77
[2016-07-22] MEDS ORDERED: SOD CITRATE-CI473 ML PO (07:39)
[2016-07-22] MEDS ORDERED: HYDRALAZINE HCL50 MG PO (07:40)
[2016-07-22] MEDS ORDERED: LASIX20 MG PO (07:40)
[2016-07-22 07:47] LABS: CHLORIDE 104 mEq/L (99-109); POTASSIUM 4.3 mEq/L (3.7-5.4); SODIUM 141 mEq/L (136-147)
[2016-07-22 07:50] LABS: ANION GAP 8 MEQ/L (2-14)
[2016-07-22 07:52] LABS: GFR ESTIMATE (CALCULATED) 17 mL/min/
[2016-07-22 07:53] LABS: UREA NITROGEN (BUN) 41 mg/dL (9-23)
[2016-07-22 08:15] LABS: GLUCOSE 230 mg/dL (70-99)
[2016-07-22 11:30] VITALS: BP 190/81
[2016-07-22 16:00] VITALS: BP 173/81
[2016-07-22 21:21] VITALS: BP 175/75
[2016-07-23] VITALS (7 sets, daily range): BP systolic 140–177; BP diastolic 55–78
[2016-07-23 05:58] LABS: EOSINOPHIL (%) 0 % (0-5); HEMATOCRIT 27.2 % (36.0-46.0); IMMATURE GRANULOCYTE (%) 0.2 % (0.0-0.7); LYMPHOCYTE COUNT 0.8 K/uL (1.0-2.8); MCH 32.3 PG (29.0-34.0); MCHC 30.5 G/DL (30.0-36.0); MCV 105.8 FL (83-99); MEAN PLAT.VOLUME 9.7 uM^3 (9.5-12.4); MONOCYTE (%) 10.4 % (3-12); MONOCYTE COUNT 0.7 K/uL (0-0.8); NEUTROPHIL (%) 77.7 % (45-76); PLATELET COUNT 192 K/uL (156-360); RBC DIS.WIDTH-CV 15.9 % (11.8-14.6); RBC DIS.WIDTH-SD 61.6 % (39-53); RED BLOOD COUNT 2.57 M/uL (3.80-5.20); WHITE BLOOD COUNT 6.4 K/uL (4.1-10.2)
[2016-07-23 06:27] LABS: ANION GAP 10 MEQ/L (2-14); CHLORIDE 105 MEQ/L (99-109); GFR ESTIMATE (CALCULATED) 16 mL/min/; GLUCOSE 137 mg/dL (70-99); IRON 88 MCG/DL (35-150); POTASSIUM 4.2 MEQ/L (3.7-5.4); SAMPLE HEMOLYSIS CHECK 0; SAMPLE ICTERIC CHECK 0; SAMPLE LIPEMIA CHECK 0; SODIUM 141 MEQ/L (136-147); UREA NITROGEN (BUN) 50 mg/dL (9-23)
[2016-07-24 03:15] VITALS: BP 148/65
[2016-07-24 07:35] VITALS: BP 162/76
[2016-07-24 12:15] VITALS: BP 153/69
[2016-07-24 17:04] VITALS: BP 154/68
[2016-07-24 19:25] VITALS: BP 129/69
[2016-07-24 23:00] VITALS: BP 138/64
[2016-07-25 03:30] VITALS: BP 158/70
[2016-07-25 05:30] LABS: EOSINOPHIL (%) 2.4 % (0-5); EOSINOPHIL COUNT 0.1 K/uL (0-0.3); HEMATOCRIT 26.8 % (36.0-46.0); IMMATURE GRANULOCYTE (%) 0.2 % (0.0-0.7); INSTRUMENT ABS NEUTROPHIL CT 3.1 K/uL; LYMPHOCYTE COUNT 0.9 K/uL (1.0-2.8); MCH 32.3 PG (29.0-34.0); MCV 104.3 FL (83-99); MONOCYTE (%) 12.3 % (3-12); MONOCYTE COUNT 0.6 K/uL (0-0.8); NEUTROPHIL (%) 66.2 % (45-76); NEUTROPHIL COUNT 3.1 K/uL (1.8-6.4); PLATELET COUNT 174 K/uL (156-360); RBC DIS.WIDTH-CV 15.8 % (11.8-14.6); RBC DIS.WIDTH-SD 60.4 % (39-53); RED BLOOD COUNT 2.57 M/uL (3.80-5.20); WHITE BLOOD COUNT 4.7 K/uL (4.1-10.2)
[2016-07-25 05:53] LABS: ANION GAP 9 MEQ/L (2-14); CHLORIDE 100 MEQ/L (99-109); GFR ESTIMATE (CALCULATED) 16 mL/min/; GLUCOSE 126 mg/dL (70-99); POTASSIUM 4.3 MEQ/L (3.7-5.4); SAMPLE HEMOLYSIS CHECK 0; SAMPLE ICTERIC CHECK 0; SAMPLE LIPEMIA CHECK 0; SODIUM 138 MEQ/L (136-147); UREA NITROGEN (BUN) 58 mg/dL (9-23)
[2016-07-25 07:30] VITALS: BP 166/72
[2016-07-25 12:44] VITALS: BP 137/61
[2016-07-25 14:13] LABS: AHBS INDEX 0; HBSG INDEX 0.23; HEPATITIS B SURFACE ANTIBODY Nonreactive; HPCA INDEX 0.08
[2016-07-25 16:02] VITALS: BP 158/62
[2016-07-25 19:00] VITALS: BP 157/70
[2016-07-25 23:00] VITALS: BP 147/67
[2016-07-25 23:46] LABS: ADD MIUA? NO; BILIRUBIN NEGATIVE; BLOOD NEGATIVE; COLOR STRAW ((YELLOW)); GLUCOSE (STRIP) NEGATIVE; KETONES NEGATIVE; LEUKOCYTES NEGATIVE; NITRITE NEGATIVE; PROTEIN (STRIP) NEGATIVE; SPECIFIC GRAVITY 1.005 (1.000-1.030); UROBILINOGEN 0.2 MG/DL (0.2-1.0)
[2016-07-26 03:20] VITALS: BP 155/68
[2016-07-26 05:58] LABS: EOSINOPHIL (%) 3.2 % (0-5); EOSINOPHIL COUNT 0.1 K/uL (0-0.3); HEMATOCRIT 27.5 % (36.0-46.0); IMMATURE GRANULOCYTE (%) 0.2 % (0.0-0.7); INSTRUMENT ABS NEUTROPHIL CT 2.6 K/uL; LYMPHOCYTE COUNT 0.8 K/uL (1.0-2.8); MCH 32.1 PG (29.0-34.0); MCHC 30.5 G/DL (30.0-36.0); MEAN PLAT.VOLUME 10.1 uM^3 (9.5-12.4); MONOCYTE COUNT 0.5 K/uL (0-0.8); NEUTROPHIL (%) 64.7 % (45-76); NEUTROPHIL COUNT 2.6 K/uL (1.8-6.4); PLATELET COUNT 166 K/uL (156-360); RBC DIS.WIDTH-CV 15.6 % (11.8-14.6); RBC DIS.WIDTH-SD 60.3 % (39-53); RED BLOOD COUNT 2.62 M/uL (3.80-5.20)
[2016-07-26 06:14] LABS: INTER. NORMALIZED RATIO 1.2; PTT 28.7 (25-32)
[2016-07-26 06:49] LABS: ANION GAP 9 MEQ/L (2-14); CHLORIDE 99 MEQ/L (99-109); GFR ESTIMATE (CALCULATED) 16 mL/min/; GLUCOSE 108 mg/dL (70-99); POTASSIUM 4.2 MEQ/L (3.7-5.4); SAMPLE HEMOLYSIS CHECK 0; SAMPLE ICTERIC CHECK 0; SAMPLE LIPEMIA CHECK 0; SODIUM 138 MEQ/L (136-147); UREA NITROGEN (BUN) 55 mg/dL (9-23)
[2016-07-26 10:03] VITALS: BP 170/76
[2016-07-26 15:00] VITALS: BP 134/63
[2016-07-26 16:09] LABS: POINT-OF-CARE METER ID UU14174216
[2016-07-26 19:00] VITALS: BP 149/67
[2016-07-26 23:30] VITALS: BP 118/59
[2016-07-27 03:30] VITALS: BP 128/61
[2016-07-27 08:11] LABS: MCH 31.7 PG (29.0-34.0); MCHC 29.3 G/DL (30.0-36.0); MCV 108.1 FL (83-99); MEAN PLAT.VOLUME 10.1 uM^3 (9.5-12.4); PLATELET COUNT 155 K/uL (156-360); RBC DIS.WIDTH-CV 15.3 % (11.8-14.6); RBC DIS.WIDTH-SD 60.7 % (39-53); RED BLOOD COUNT 2.59 M/uL (3.80-5.20); WHITE BLOOD COUNT 4.6 K/uL (4.1-10.2)
[2016-07-27 08:35] LABS: ANION GAP 8 MEQ/L (2-14); CHLORIDE 98 MEQ/L (99-109); GFR ESTIMATE (CALCULATED) 18 mL/min/; POTASSIUM 4.2 MEQ/L (3.7-5.4); SAMPLE HEMOLYSIS CHECK 0; SAMPLE ICTERIC CHECK 0; SAMPLE LIPEMIA CHECK 0; SODIUM 137 MEQ/L (136-147); UREA NITROGEN (BUN) 35 mg/dL (9-23)
[2016-07-27 08:44] LABS: GLUCOSE 227 mg/dL (70-99)
[2016-07-27 10:49] VITALS: BP 147/69
[2016-07-27 12:22] VITALS: BP 133/62
[2016-07-27 14:49] VITALS: BP 137/63
[2016-07-27 19:00] VITALS: BP 129/61
[2016-07-27 23:30] VITALS: BP 151/65
[2016-07-28 03:30] VITALS: BP 133/63
[2016-07-28 07:28] VITALS: BP 168/72
[2016-07-28 11:29] VITALS: BP 108/54
[2016-07-28 15:59] VITALS: BP 128/58
[2016-07-28 19:32] VITALS: BP 164/66
[2016-07-28 23:13] VITALS: BP 156/67
[2016-07-29 05:51] VITALS: BP 160/62
[2016-07-29 05:52] LABS: EOSINOPHIL (%) 2.4 % (0-5); EOSINOPHIL COUNT 0.1 K/uL (0-0.3); HEMATOCRIT 27.8 % (36.0-46.0); IMMATURE GRANULOCYTE (%) 0.2 % (0.0-0.7); LYMPHOCYTE COUNT 0.8 K/uL (1.0-2.8); MCH 32.6 PG (29.0-34.0); MCHC 30.9 G/DL (30.0-36.0); MCV 105.3 FL (83-99); MEAN PLAT.VOLUME 10.3 uM^3 (9.5-12.4); MONOCYTE (%) 11.4 % (3-12); MONOCYTE COUNT 0.6 K/uL (0-0.8); NEUTROPHIL (%) 71.7 % (45-76); PLATELET COUNT 156 K/uL (156-360); RBC DIS.WIDTH-CV 14.7 % (11.8-14.6); RBC DIS.WIDTH-SD 56.6 % (39-53); RED BLOOD COUNT 2.64 M/uL (3.80-5.20); WHITE BLOOD COUNT 5.5 K/uL (4.1-10.2)
[2016-07-29 06:20] LABS: ANION GAP 9 MEQ/L (2-14); CHLORIDE 102 MEQ/L (99-109); SAMPLE HEMOLYSIS CHECK 0; SAMPLE ICTERIC CHECK 0; SAMPLE LIPEMIA CHECK 0; SODIUM 138 MEQ/L (136-147); UREA NITROGEN (BUN) 42 mg/dL (9-23)
[2016-07-29 06:25] LABS: GLUCOSE 105 mg/dL (70-99)
[2016-07-29 06:26] LABS: GFR ESTIMATE (CALCULATED) 14 mL/min/; POTASSIUM 5.1 MEQ/L (3.7-5.4)
[2016-07-29 07:46] VITALS: BP 165/71
[2016-07-29 11:28] VITALS: BP 123/84
[2016-07-29 18:33] VITALS: BP 143/58
[2016-07-29 19:33] VITALS: BP 108/50
[2016-07-29] MEDS ORDERED: LOSARTAN POTASS25 MG PO (19:53)
[2016-07-29] MEDS ORDERED: K-DUR20 MEQ PO (19:54)
[2016-07-29] MEDS ORDERED: TYLENOL REGULA325 MG PO (19:54)
[2016-07-29] MEDS ORDERED: MAG-AL PLUS SUS30 ML PO (19:55)
[2016-07-29] MEDS ORDERED: FUROSEMIDE40 MG PO (19:55)
[2016-07-29 21:46] VITALS: BP 119/57
[2016-07-30 00:36] VITALS: BP 147/65
[2016-07-30 04:41] VITALS: BP 152/89
[2016-07-30 07:00] VITALS: BP 121/59
[2016-07-30 08:47] LABS: EOSINOPHIL (%) 2.3 % (0-5); EOSINOPHIL COUNT 0.1 K/uL (0-0.3); IMMATURE GRANULOCYTE (%) 0.2 % (0.0-0.7); INSTRUMENT ABS NEUTROPHIL CT 2.9 K/uL; LYMPHOCYTE COUNT 0.8 K/uL (1.0-2.8); MCH 32.9 PG (29.0-34.0); MCHC 30.7 G/DL (30.0-36.0); MCV 107.1 FL (83-99); MEAN PLAT.VOLUME 9.9 uM^3 (9.5-12.4); MONOCYTE (%) 13.8 % (3-12); MONOCYTE COUNT 0.6 K/uL (0-0.8); NEUTROPHIL (%) 65.9 % (45-76); NEUTROPHIL COUNT 2.9 K/uL (1.8-6.4); PLATELET COUNT 153 K/uL (156-360); RBC DIS.WIDTH-CV 14.9 % (11.8-14.6); RED BLOOD COUNT 2.52 M/uL (3.80-5.20); WHITE BLOOD COUNT 4.3 K/uL (4.1-10.2)
[2016-07-30 09:11] LABS: ANION GAP 7 MEQ/L (2-14); CHLORIDE 102 MEQ/L (99-109); GFR ESTIMATE (CALCULATED) 18 mL/min/; GLUCOSE 138 mg/dL (70-99); POTASSIUM 4.2 MEQ/L (3.7-5.4); SAMPLE HEMOLYSIS CHECK 0; SAMPLE ICTERIC CHECK 0; SAMPLE LIPEMIA CHECK 0; SODIUM 137 MEQ/L (136-147); UREA NITROGEN (BUN) 31 mg/dL (9-23)
[2016-07-30 12:47] VITALS: BP 158/62
== END 2016-07-30 14:30 | disposition home or self-care (01) | DRG 291 ==
LOC: EME → EDBD 02:17 → EME 02:17 → EDOF 04:41 → 4EAST 04:41
PROVIDERS: Emergency Medicine; Family Medicine Sports Medicine; Internal Medicine Nephrology
PROC: 5A1D60Z (ICD-10-PCS; 2016-07-25)
PROC: B5131ZA Fluoroscopy of Right Jugular Veins using Low Osmolar Contrast, Guidance (ICD-10-PCS; principal; 2016-07-26)
PROC: 05HM33Z Insertion of Infusion Device into Right Internal Jugular Vein, Percutaneous Approach (ICD-10-PCS; principal; 2016-07-26)
DX: I50.22 Chronic systolic (congestive) heart failure (principal); J96.01 Acute respiratory failure with hypoxia; N17.9 Acute kidney failure, unspecified; I48.0 Paroxysmal atrial fibrillation; N18.6 End stage renal disease; I13.2 Hypertensive heart and chronic kidney disease with heart failure and with stage 5 chronic kidney disease, or end stage renal disease; J44.1 Chronic obstructive pulmonary disease with (acute) exacerbation; N28.1 Cyst of kidney, acquired; E11.22 Type 2 diabetes mellitus with diabetic chronic kidney disease; K27.9 Peptic ulcer, site unspecified, unspecified as acute or chronic, without hemorrhage or perforation; I35.0 Nonrheumatic aortic (valve) stenosis; D63.1 Anemia in chronic kidney disease; E78.5 Hyperlipidemia, unspecified; I42.9 Cardiomyopathy, unspecified; E87.2 Acidosis; K75.9 Inflammatory liver disease, unspecified; K21.9 Gastro-esophageal reflux disease without esophagitis; Z99.81 Dependence on supplemental oxygen; Z68.1 Body mass index [BMI] 19.9 or less, adult; Z93.3 Colostomy status; Z87.11 Personal history of peptic ulcer disease; Z72.0 Tobacco use; Z79.899 Other long term (current) drug therapy
CPT/HCPCS: 36600; 71010; 71020; 80048; 80048 91; 80069; 81003; 82272; 82803; 82948; 83540; 83880; 84466; 84484; 85025; 85027; 85610; 85730; 86706; 86803; 87040; 87340; 93005; 94640; 94640 76; 94799; 99202; 99281; 99285; C1750; C1894; J0456; J0690; J0696; J0881; J1644; J1940; J2250; J2930; J3010; J7050; S0020

== ENCOUNTER 2016-08-13 13:23 | Emergency (ER) | payer OTHER ==
[~2016-08-13] VITALS: Ht 162.6 cm; Wt 42.8 kg
[~2016-08-13 13:23] MED LIST changes: +FAMOTIDINE40 MG PO; +FERROUS SULFAT325 MG PO; +FUROSEMIDE40 MG PO; +HYDRALAZINE HCL50 MG PO; +K-DUR20 MEQ PO; +LOSARTAN POTASS25 MG PO; +MAG-AL PLUS SUS30 ML PO; +SOD CITRATE-CI473 ML PO; +TYLENOL REGULA325 MG PO
[2016-08-13 14:07] LABS: HEMATOCRIT 28.6 % (36.0-46.0); MCH 32.4 PG (29.0-34.0); MCHC 31.5 G/DL (30.0-36.0); MEAN PLAT.VOLUME 9.1 uM^3 (9.5-12.4); PLATELET COUNT 186 K/uL (156-360); RBC DIS.WIDTH-CV 14.5 % (11.8-14.6); RBC DIS.WIDTH-SD 55.2 % (39-53); RED BLOOD COUNT 2.78 M/uL (3.80-5.20); WHITE BLOOD COUNT 7.4 K/uL (4.1-10.2)
[2016-08-13 14:08] LABS: MCV 102.9 FL (83-99)
[2016-08-13 14:20] LABS: PROTHROMBIN TIME 10.6 (9.2-11.2); PTT 28.1 (25-32)
[2016-08-13 14:21] LABS: CHLORIDE 99 mEq/L (99-109); POTASSIUM 4.3 mEq/L (3.7-5.4); SODIUM 137 mEq/L (136-147)
[2016-08-13 14:23] LABS: GLUCOSE 50 mg/dL (70-99)
[2016-08-13 14:24] LABS: ANION GAP 11 MEQ/L (2-14)
[2016-08-13 14:25] LABS: TOTAL BILIRUBIN 0.4 mg/dL (0.0-1.0)
[2016-08-13 14:26] LABS: ALKALINE PHOSPHATASE 87 IU/L (3-129)
[2016-08-13 14:27] LABS: GFR ESTIMATE (CALCULATED) 14 mL/min/
[2016-08-13 14:28] LABS: UREA NITROGEN (BUN) 36 mg/dL (9-23)
[2016-08-13 15:38] LABS: POINT-OF-CARE METER ID UU13113702
[2016-08-13 18:56] VITALS: BP 161/63
== END 2016-08-13 18:58 | disposition home or self-care (01) ==
LOC: EME 13:23
PROVIDERS: Emergency Medicine
DX: S70.01XA Contusion of right hip, initial encounter (principal); W07.XXXA Fall from chair, initial encounter; Y93.89 Activity, other specified; J44.9 Chronic obstructive pulmonary disease, unspecified; I12.9 Hypertensive chronic kidney disease with stage 1 through stage 4 chronic kidney disease, or unspecified chronic kidney disease; N18.9 Chronic kidney disease, unspecified; Z99.2 Dependence on renal dialysis; Z79.01 Long term (current) use of anticoagulants; E78.5 Hyperlipidemia, unspecified; Z93.3 Colostomy status; Z87.891 Personal history of nicotine dependence
CPT/HCPCS: 70450; 71010; 73502; 73552; 80053; 82948; 85027; 85610; 85730; 93005; 99281; 99284; J3010

== ENCOUNTER 2016-09-16 10:53 | Day surgery (SDC) | payer OTHER ==
[~2016-09-16] VITALS: Ht 162.6 cm; Wt 40.4 kg
[~2016-09-16 10:53] MED LIST changes: +CALCIUM ACETAT667 MG PO; +COREG25 M1 PO
[2016-09-16 11:29] LABS: HEMATOCRIT 39.3 % (36.0-46.0); MCH 31.7 PG (29.0-34.0); MCHC 30.5 G/DL (30.0-36.0); MEAN PLAT.VOLUME 9.3 uM^3 (9.5-12.4); PLATELET COUNT 168 K/uL (156-360); RBC DIS.WIDTH-CV 14.3 % (11.8-14.6); RBC DIS.WIDTH-SD 53.8 % (39-53); RED BLOOD COUNT 3.78 M/uL (3.80-5.20); WHITE BLOOD COUNT 4.4 K/uL (4.1-10.2)
[2016-09-16 11:37] LABS: CHLORIDE 105 mEq/L (99-109); POTASSIUM 4.3 mEq/L (3.7-5.4); SODIUM 142 mEq/L (136-147)
[2016-09-16 11:39] LABS: GLUCOSE 87 mg/dL (70-99)
[2016-09-16 11:40] LABS: ANION GAP 12 MEQ/L (2-14)
[2016-09-16 11:43] LABS: GFR ESTIMATE (CALCULATED) 10 mL/min/
[2016-09-16 11:44] LABS: UREA NITROGEN (BUN) 57 mg/dL (9-23)
[2016-09-16 12:07] VITALS: BP 177/76
[2016-09-16 12:39] LABS: METH RESISTANT S AUREUS PCR NEGATIVE (NEGATIVE)
[2016-09-16 12:40] LABS: PROBE CHECK PASS; SPECIMEN PROCESSING CONTROL PASS
[2016-09-16 15:47] VITALS: BP 183/77
[2016-09-16 16:52] VITALS: BP 160/81
== END 2016-09-16 16:55 | disposition home or self-care (01) ==
LOC: SDC 10:53
PROVIDERS: Surgery
DX: I12.0 Hypertensive chronic kidney disease with stage 5 chronic kidney disease or end stage renal disease (principal); N18.6 End stage renal disease; Z99.2 Dependence on renal dialysis; J44.9 Chronic obstructive pulmonary disease, unspecified; Z93.3 Colostomy status; Z79.01 Long term (current) use of anticoagulants; Z87.891 Personal history of nicotine dependence
CPT/HCPCS: 80048; 85027; 87641; J0690; J1644; J2720

== ENCOUNTER 2016-12-05 07:54 | Day surgery (SDC) | payer OTHER ==
[~2016-12-05] VITALS: Ht 157.5 cm; Wt 44.0 kg
[2016-12-05 10:04] LABS: METH RESISTANT S AUREUS PCR NEGATIVE (NEGATIVE)
[2016-12-05 10:05] LABS: PROBE CHECK PASS; SPECIMEN PROCESSING CONTROL PASS
== END 2016-12-05 10:24 | disposition home or self-care (01) ==
LOC: CATH 07:54
PROVIDERS: Surgery
DX: T82.858A Stenosis of other vascular prosthetic devices, implants and grafts, initial encounter (principal); I12.0 Hypertensive chronic kidney disease with stage 5 chronic kidney disease or end stage renal disease; N18.6 End stage renal disease; J44.9 Chronic obstructive pulmonary disease, unspecified; Z99.2 Dependence on renal dialysis; Z79.01 Long term (current) use of anticoagulants; Z87.19 Personal history of other diseases of the digestive system
CPT/HCPCS: 87641; C1725; C1769; C1894; J1644; J2250; J3010

== ENCOUNTER 2017-02-07 17:06 | Emergency (ER) | payer OTHER ==
[~2017-02-07] VITALS: Ht 162.6 cm; Wt 44.2 kg
[2017-02-07 18:13] VITALS: BP 181/84
== END 2017-02-07 18:15 | disposition home or self-care (01) ==
LOC: EME 17:06
DX: T82.838A Hemorrhage due to vascular prosthetic devices, implants and grafts, initial encounter (principal); Y83.2 Surgical operation with anastomosis, bypass or graft as the cause of abnormal reaction of the patient, or of later complication, without mention of misadventure at the time of the procedure; Z99.2 Dependence on renal dialysis; E78.5 Hyperlipidemia, unspecified; I50.9 Heart failure, unspecified; Z93.3 Colostomy status; Z87.891 Personal history of nicotine dependence; Z85.9 Personal history of malignant neoplasm, unspecified
CPT/HCPCS: 99281; 99283

== ENCOUNTER 2017-02-13 17:55 | Inpatient (IN) | payer OTHER ==
[~2017-02-13] VITALS: Ht 157.5 cm; Wt 41.5 kg
[2017-02-13 19:04] LABS: BASOPHIL (%) 0.1 % (0-1); EOSINOPHIL (%) 0 % (0-5); HEMATOCRIT 37.2 % (36.0-46.0); HEMOGLOBIN 11.8 G/DL (11.9-15.5); IMMATURE GRANULOCYTE (%) 0.3 % (0.0-0.7); LYMPHOCYTE (%) 3.6 % (15-42); LYMPHOCYTE COUNT 0.5 K/uL (1.0-2.8); MCH 33.2 PG (29.0-34.0); MCHC 31.7 G/DL (30.0-36.0); MCV 104.8 FL (83-99); MONOCYTE (%) 6.6 % (3-12); MONOCYTE COUNT 0.9 K/uL (0-0.8); NEUTROPHIL (%) 89.4 % (45-76); NEUTROPHIL COUNT 12.3 K/uL (1.8-6.4); PLATELET COUNT 190 K/uL (156-360); RBC DIS.WIDTH-CV 13.9 % (11.8-14.6); RBC DIS.WIDTH-SD 51.8 % (39-53); RED BLOOD COUNT 3.55 M/uL (3.80-5.20); WHITE BLOOD COUNT 13.7 K/uL (4.1-10.2)
[2017-02-13 19:15] LABS: INTER. NORMALIZED RATIO 1.2
[2017-02-13 19:19] LABS: ALBUMIN 3.7 g/dL (3.2-4.8); CHLORIDE 99 mEq/L (99-109); POTASSIUM 4.3 mEq/L (3.7-5.4); SODIUM 133 mEq/L (136-147)
[2017-02-13 19:22] LABS: GLUCOSE 146 mg/dL (70-99); TOTAL PROTEIN 7.2 g/dL (6.4-8.3)
[2017-02-13 19:24] LABS: TOTAL BILIRUBIN 0.6 mg/dL (0.0-1.0)
[2017-02-13 19:25] LABS: ALKALINE PHOSPHATASE 127 IU/L (3-129)
[2017-02-13 19:26] LABS: CREATININE 4.2 mg/dL (0.6-1.3); GFR ESTIMATE (CALCULATED) 11 mL/min/
[2017-02-13 19:27] LABS: AST (GOT) 80 IU/L (2-34); UREA NITROGEN (BUN) 41 mg/dL (9-23)
[2017-02-13 19:29] LABS: ALT (GPT) 59 IU/L (3-49); TROP-I INTERPRETATION NEGATIVE; TROPONIN-I 0.09 ng/mL (0.0-0.30)
[2017-02-13] MEDS ORDERED: LEVAQUIN500 MG PO (20:23)
[2017-02-13 22:20] LABS: APPEARANCE CLOUDY ((CLEAR)); BILIRUBIN NEGATIVE; BLOOD SMALL; COLOR YELLOW ((YELLOW)); GLUCOSE (STRIP) NEGATIVE; KETONES NEGATIVE; LEUKOCYTES MODERATE; NITRITE NEGATIVE; PROTEIN (STRIP) 100; SPECIFIC GRAVITY 1.014 (1.000-1.030); UROBILINOGEN 0.2 MG/DL (0.2-1.0)
[2017-02-13 22:46] LABS: RED BLOOD CELLS 0-5 /HPF (0-5); WHITE BLOOD CELLS TNTC /HPF (0-5)
[2017-02-13 22:47] LABS: EPITHELIAL CELLS 1+ /HPF
[2017-02-13 22:48] LABS: MUCUS TRACE /LPF
[2017-02-13 22:49] LABS: BACTERIA 3+ /HPF; UCUL ADDED? YES
[2017-02-13 23:32] VITALS: BP 145/65
[2017-02-14 00:40] VITALS: BP 146/66
[2017-02-14 04:10] VITALS: BP 114/54
[2017-02-14 06:02] LABS: HEMATOCRIT 31.9 % (36.0-46.0); HEMOGLOBIN 9.9 G/DL (11.9-15.5); MCH 32.5 PG (29.0-34.0); MCV 104.6 FL (83-99); PLATELET COUNT 155 K/uL (156-360); RBC DIS.WIDTH-CV 14.1 % (11.8-14.6); RBC DIS.WIDTH-SD 52.5 % (39-53); RED BLOOD COUNT 3.05 M/uL (3.80-5.20); WHITE BLOOD COUNT 9.2 K/uL (4.1-10.2)
[2017-02-14 06:26] LABS: ALBUMIN 2.9 G/DL (3.2-4.8); ALKALINE PHOSPHATASE 86 IU/L (3-129); ALT (GPT) 31 IU/L (3-49); AST (GOT) 31 IU/L (2-34); CHLORIDE 102 MEQ/L (99-109); CREATININE 4.5 MG/DL (0.6-1.3); GFR ESTIMATE (CALCULATED) 10 mL/min/; GLUCOSE 120 mg/dL (70-99); POTASSIUM 4.5 MEQ/L (3.7-5.4); SODIUM 136 MEQ/L (136-147); TOTAL BILIRUBIN 0.8 MG/DL (0.0-1.0); TOTAL PROTEIN 5.2 G/DL (6.4-8.3); UREA NITROGEN (BUN) 49 mg/dL (9-23)
[2017-02-14 07:17] VITALS: BP 124/60
[2017-02-14 13:00] VITALS: BP 147/66
[2017-02-14 19:50] VITALS: BP 146/66; BP 170/70
[2017-02-15 08:03] VITALS: BP 128/60
[2017-02-15] MEDS ORDERED: ELIQUIS2.5 MG PO (15:21)
[2017-02-15] MEDS ORDERED: COREG25 M1 PO (15:22)
[2017-02-15] MEDS ORDERED: SYMBICORT60 INHALAT IH (15:22)
[2017-02-15] MEDS ORDERED: PEPCID40 MG PO (15:22)
[2017-02-15] MEDS ORDERED: LIPITOR20 MG PO (15:23)
[2017-02-15] MEDS ORDERED: COZAAR25 MG PO (15:23)
[2017-02-15] MEDS ORDERED: VELPHORO500 MG PO (15:23)
[2017-02-15] MEDS ORDERED: RENAL VITAMIN0.8 MG PO (15:24)
[2017-02-15] MEDS ORDERED: AMITRIPTYLINE H10 MG PO (15:24)
[2017-02-15] MEDS ORDERED: GABAPENTIN100 MG PO (15:24)
[2017-02-15 15:48] VITALS: BP 154/72
[2017-02-15 23:10] VITALS: BP 106/59
[2017-02-16 06:58] LABS: HEMATOCRIT 30.3 % (36.0-46.0); HEMOGLOBIN 9.3 G/DL (11.9-15.5); MCH 32.2 PG (29.0-34.0); MCHC 30.7 G/DL (30.0-36.0); MCV 104.8 FL (83-99); PLATELET COUNT 120 K/uL (156-360); RBC DIS.WIDTH-CV 13.8 % (11.8-14.6); RBC DIS.WIDTH-SD 52.3 % (39-53); RED BLOOD COUNT 2.89 M/uL (3.80-5.20); WHITE BLOOD COUNT 8.3 K/uL (4.1-10.2)
[2017-02-16 07:30] LABS: ALBUMIN 2.9 G/DL (3.2-4.8); CHLORIDE 92 MEQ/L (99-109); CREATININE 4.4 MG/DL (0.6-1.3); GFR ESTIMATE (CALCULATED) 10 mL/min/; MAGNESIUM 2.3 mg/dl (1.3-2.7); SODIUM 132 MEQ/L (136-147); UREA NITROGEN (BUN) 49 mg/dL (9-23)
[2017-02-16 07:37] LABS: GLUCOSE 89 mg/dL (70-99)
[2017-02-16 08:01] VITALS: BP 106/53
[2017-02-16 08:23] LABS: BASOPHIL (%) 0.3 % (0-1); EOSINOPHIL (%) 1.4 % (0-5); EOSINOPHIL COUNT 0.1 K/uL (0-0.3); HEMATOCRIT 28.4 % (36.0-46.0); IMMATURE GRANULOCYTE (%) 0.3 % (0.0-0.7); LYMPHOCYTE (%) 4.9 % (15-42); LYMPHOCYTE COUNT 0.4 K/uL (1.0-2.8); MCH 33.3 PG (29.0-34.0); MCHC 31.7 G/DL (30.0-36.0); MCV 105.2 FL (83-99); MONOCYTE COUNT 0.5 K/uL (0-0.8); NEUTROPHIL (%) 87.1 % (45-76); NEUTROPHIL COUNT 6.7 K/uL (1.8-6.4); PLATELET COUNT 107 K/uL (156-360); RBC DIS.WIDTH-CV 13.9 % (11.8-14.6); RBC DIS.WIDTH-SD 52.4 % (39-53); WHITE BLOOD COUNT 7.7 K/uL (4.1-10.2)
[2017-02-16 17:13] VITALS: BP 121/57
[2017-02-16 22:45] VITALS: BP 108/54
[2017-02-17 02:30] VITALS: BP 144/63
[2017-02-17 07:45] VITALS: BP 110/64
[2017-02-17 16:30] VITALS: BP 138/61
[2017-02-18 00:12] VITALS: BP 120/53
[2017-02-18 08:48] VITALS: BP 151/70
[2017-02-18 16:06] VITALS: BP 134/61
[2017-02-19 00:17] VITALS: BP 136/82
[2017-02-19 07:13] VITALS: BP 157/67
[2017-02-19 09:02] LABS: HEMATOCRIT 30.8 % (36.0-46.0); HEMOGLOBIN 9.8 G/DL (11.9-15.5); MCHC 31.8 G/DL (30.0-36.0); PLATELET COUNT 133 K/uL (156-360); RBC DIS.WIDTH-CV 14.4 % (11.8-14.6); RBC DIS.WIDTH-SD 52.3 % (39-53); RED BLOOD COUNT 3.06 M/uL (3.80-5.20); WHITE BLOOD COUNT 7.5 K/uL (4.1-10.2)
[2017-02-19 09:25] LABS: ALBUMIN 2.7 G/DL (3.2-4.8); CHLORIDE 94 MEQ/L (99-109); GFR ESTIMATE (CALCULATED) 6 mL/min/; GLUCOSE 143 mg/dL (70-99); PHOSPHORUS 6.4 mg/dL (2.5-4.9); POTASSIUM 4.7 MEQ/L (3.7-5.4); SODIUM 132 MEQ/L (136-147)
[2017-02-19 09:26] LABS: CREATININE 6.7 MG/DL (0.6-1.3); UREA NITROGEN (BUN) 74 mg/dL (9-23)
[2017-02-19 09:28] LABS: ABS NEUTROPHIL COUNT 6.1; EOSINOPHIL ABS CT 0.1; EOSINOPHILS 0.9 % (0-5.0); MONOCYTES 10.4 % (0-9.0); SEG.NEUTROPHILS 81.7 % (46.0-76.0); SMUDGE CELLS 0.9
[2017-02-19 09:42] LABS: MCV 100.7 FL (83-99)
[2017-02-19 16:50] VITALS: BP 144/60
[2017-02-20 00:07] VITALS: BP 151/77
[2017-02-20 08:37] VITALS: BP 151/69
[2017-02-20 16:07] VITALS: BP 156/67
[2017-02-21] VITALS: BP 178/77
[2017-02-21 08:00] VITALS: BP 173/75
[2017-02-21 08:04] VITALS: BP 173/75
[2017-02-21 08:20] LABS: HEMATOCRIT 30.4 % (36.0-46.0); HEMOGLOBIN 9.4 G/DL (11.9-15.5); MCH 30.9 PG (29.0-34.0); MCHC 30.9 G/DL (30.0-36.0); RBC DIS.WIDTH-CV 14.2 % (11.8-14.6); RBC DIS.WIDTH-SD 51.9 % (39-53); RED BLOOD COUNT 3.04 M/uL (3.80-5.20); WHITE BLOOD COUNT 7.7 K/uL (4.1-10.2)
[2017-02-21 08:26] LABS: PLATELET COUNT 184 K/uL (156-360)
[2017-02-21 08:35] LABS: ALBUMIN 2.6 G/DL (3.2-4.8); CHLORIDE 97 MEQ/L (99-109); CREATININE 6.1 MG/DL (0.6-1.3); GFR ESTIMATE (CALCULATED) 7 mL/min/; GLUCOSE 129 mg/dL (70-99); PHOSPHORUS 5.6 mg/dL (2.5-4.9); POTASSIUM 4.1 MEQ/L (3.7-5.4); SODIUM 135 MEQ/L (136-147); UREA NITROGEN (BUN) 84 mg/dL (9-23)
[2017-02-21 08:45] LABS: ANISOCYTOSIS 1+; BASOPHIL (%) 0.1 % (0-1); EOSINOPHIL (%) 0.9 % (0-5); EOSINOPHIL COUNT 0.1 K/uL (0-0.3); IMMATURE GRANULOCYTE (%) 0.7 % (0.0-0.7); LYMPHOCYTE (%) 14.8 % (15-42); LYMPHOCYTE COUNT 1.1 K/uL (1.0-2.8); MACROCYTES 1+; MONOCYTE (%) 9.9 % (3-12); MONOCYTE COUNT 0.8 K/uL (0-0.8); NEUTROPHIL (%) 73.6 % (45-76); NEUTROPHIL COUNT 5.6 K/uL (1.8-6.4)
[2017-02-21 15:59] VITALS: BP 177/74
[2017-02-21 22:54] VITALS: BP 151/69
[2017-02-22 07:20] VITALS: BP 169/75
[2017-02-22 15:25] VITALS: BP 145/71
[2017-02-22 22:30] VITALS: BP 148/68
[2017-02-23 08:36] VITALS: BP 174/76
[2017-02-23 15:00] VITALS: BP 150/71
[2017-02-23 18:01] LABS: C DIFF TOXIN NEGATIVE (NEGATIVE)
[2017-02-24 00:10] VITALS: BP 170/72
[2017-02-24 00:27] VITALS: BP 150/58
[2017-02-24 06:02] VITALS: BP 168/58
[2017-02-24 08:25] VITALS: BP 157/80
[2017-02-24 09:04] LABS: BASOPHIL (%) 0 % (0-1); EOSINOPHIL (%) 0.7 % (0-5); EOSINOPHIL COUNT 0.1 K/uL (0-0.3); HEMATOCRIT 30.8 % (36.0-46.0); HEMOGLOBIN 9.7 G/DL (11.9-15.5); LYMPHOCYTE (%) 8.7 % (15-42); LYMPHOCYTE COUNT 0.9 K/uL (1.0-2.8); MCH 32.1 PG (29.0-34.0); MCHC 31.5 G/DL (30.0-36.0); MONOCYTE (%) 7.2 % (3-12); MONOCYTE COUNT 0.8 K/uL (0-0.8); NEUTROPHIL (%) 82.4 % (45-76); NEUTROPHIL COUNT 8.8 K/uL (1.8-6.4); PLATELET COUNT 230 K/uL (156-360); RBC DIS.WIDTH-CV 14.5 % (11.8-14.6); RBC DIS.WIDTH-SD 53.5 % (39-53); RED BLOOD COUNT 3.02 M/uL (3.80-5.20); WHITE BLOOD COUNT 10.6 K/uL (4.1-10.2)
[2017-02-24 09:12] LABS: ALBUMIN 2.8 G/DL (3.2-4.8); CHLORIDE 101 MEQ/L (99-109); POTASSIUM 3.9 MEQ/L (3.7-5.4); SODIUM 136 MEQ/L (136-147)
[2017-02-24 09:19] LABS: CREATININE 6.1 MG/DL (0.6-1.3); GFR ESTIMATE (CALCULATED) 7 mL/min/; GLUCOSE 113 mg/dL (70-99); PHOSPHORUS 5.7 mg/dL (2.5-4.9); UREA NITROGEN (BUN) 90 mg/dL (9-23)
[2017-02-24 16:21] VITALS: BP 151/63
[2017-02-24 23:07] VITALS: BP 156/64
[2017-02-25 07:25] VITALS: BP 178/71
[2017-02-25] MEDS ORDERED: SPIRIVA RESPIMAT4 GM IH (08:14)
[2017-02-25] MEDS ORDERED: CALCIUM ACETAT667 MG PO (08:15)
[2017-02-25] MEDS ORDERED: TYLENOL REGULA325 MG PO (08:15)
[2017-02-25] MEDS ORDERED: ADVAIR HFA120 INHAL1 IH (08:16)
[2017-02-25] MEDS ORDERED: ERGOCALCIF50000 UNIT PO (08:17)
[2017-02-25] MEDS ORDERED: PREDNISONE20 MG PO (08:17)
[2017-02-25] MEDS ORDERED: DOCUSATE SODIU100 MG PO (08:17)
== END 2017-02-25 15:00 | DRG 871 ==
LOC: EME 17:55 → 5EAST 21:22 → EDOF 21:22 → ENRESERV 21:29 → 5EAST 22:44
PROVIDERS: Emergency Medicine; Internal Medicine; Internal Medicine Nephrology; Internal Medicine Pulmonary Disease
PROC: 5A1D70Z Performance of Urinary Filtration, Intermittent, Less than 6 Hours Per Day (ICD-10-PCS; principal; 2017-02-24)
DX: A41.9 Sepsis, unspecified organism (principal); G93.41 Metabolic encephalopathy; J11.00 Influenza due to unidentified influenza virus with unspecified type of pneumonia; D63.1 Anemia in chronic kidney disease; J44.0 Chronic obstructive pulmonary disease with (acute) lower respiratory infection; J44.1 Chronic obstructive pulmonary disease with (acute) exacerbation; E78.5 Hyperlipidemia, unspecified; E11.22 Type 2 diabetes mellitus with diabetic chronic kidney disease; I48.2 Chronic atrial fibrillation; E87.1 Hypo-osmolality and hyponatremia; K21.9 Gastro-esophageal reflux disease without esophagitis; I50.9 Heart failure, unspecified; N39.0 Urinary tract infection, site not specified; R65.20 Severe sepsis without septic shock; Z68.1 Body mass index [BMI] 19.9 or less, adult; N18.6 End stage renal disease; I12.9 Hypertensive chronic kidney disease with stage 1 through stage 4 chronic kidney disease, or unspecified chronic kidney disease; R09.02 Hypoxemia; T82.510A Breakdown (mechanical) of surgically created arteriovenous fistula, initial encounter; Y71.2 Prosthetic and other implants, materials and accessory cardiovascular devices associated with adverse incidents; E55.9 Vitamin D deficiency, unspecified; K59.00 Constipation, unspecified; Z99.2 Dependence on renal dialysis; Z87.891 Personal history of nicotine dependence; Z93.3 Colostomy status; Z87.11 Personal history of peptic ulcer disease; Z79.01 Long term (current) use of anticoagulants
CPT/HCPCS: 70551; 71010; 71045; 71046; 80048; 80053; 80069; 81003; 82040; 82306; 82607; 83605; 83735; 84484; 85025; 85027; 85610; 85730; 87040; 87077; 87086; 87186; 87449; 87493; 87502; 92610 GN; 93005; 93306; 94640; 94640 76; 94667; 94668; 94799; 95819; 99202; 99281; 99285; C1725; C1769; C1874; C1894; J0692; J2270; J2405; J7040; J7512

== ENCOUNTER 2017-02-28 07:58 | Day surgery (SDC) | payer OTHER ==
[~2017-02-28] VITALS: Ht 162.6 cm; Wt 39.0 kg
[~2017-02-28 07:58] MED LIST changes: +ADVAIR HFA120 INHAL1 IH; +COZAAR25 MG PO; +DOCUSATE SODIU100 MG PO; +ERGOCALCIF50000 UNIT PO; +LEVAQUIN500 MG PO; +LIPITOR20 MG PO; +PEPCID40 MG PO; +RENAL VITAMIN0.8 MG PO; +VELPHORO500 MG PO
== END 2017-02-28 10:49 ==
LOC: CATH 07:58
DX: T82.858A Stenosis of other vascular prosthetic devices, implants and grafts, initial encounter (principal); I12.0 Hypertensive chronic kidney disease with stage 5 chronic kidney disease or end stage renal disease; N18.6 End stage renal disease; Z99.2 Dependence on renal dialysis; Z87.11 Personal history of peptic ulcer disease; Z79.01 Long term (current) use of anticoagulants; Y83.2 Surgical operation with anastomosis, bypass or graft as the cause of abnormal reaction of the patient, or of later complication, without mention of misadventure at the time of the procedure
CPT/HCPCS: 87641; C1725; C1769; C1874; C1894; J1644; J2250; J3010

== ENCOUNTER 2017-02-28 14:49 | Day surgery (SDC) | payer OTHER | END 2017-02-28 18:25 | LOC: CATH 14:49 | PROC: 059 Upper Veins, Drainage (ICD-10-PCS; principal; 2017-02-28) | DX: Z45.2 Encounter for adjustment and management of vascular access device (principal); T82.510A Breakdown (mechanical) of surgically created arteriovenous fistula, initial encounter; I12.0 Hypertensive chronic kidney disease with stage 5 chronic kidney disease or end stage renal disease; N18.6 End stage renal disease; Z99.2 Dependence on renal dialysis | CPT/HCPCS: 71045; C1788; C1894; J0690; J1644; J2250; J3010; J7040 ==

== ENCOUNTER 2017-04-09 11:01 | Day surgery (SDC) | payer OTHER ==
[~2017-04-09] VITALS: Ht 157.5 cm; Wt 45.4 kg
[~2017-04-09 11:01] MED LIST changes: +PREDNISONE10 MG PO; +REQUIP0.25 MG PO; +TESSALON PERLE100 MG PO; +VOL-CARE RX TA1 EACH PO
[2017-04-09 11:39] LABS: HEMATOCRIT 34.5 % (36.0-46.0); HEMOGLOBIN 10.6 G/DL (11.9-15.5); MCH 31.9 PG (29.0-34.0); MCHC 30.7 G/DL (30.0-36.0); MCV 103.9 FL (83-99); PLATELET COUNT 222 K/uL (156-360); RBC DIS.WIDTH-CV 16.3 % (11.8-14.6); RBC DIS.WIDTH-SD 62.4 % (39-53); RED BLOOD COUNT 3.32 M/uL (3.80-5.20); WHITE BLOOD COUNT 6.2 K/uL (4.1-10.2)
[2017-04-09 12:03] VITALS: BP 158/65
[2017-04-09 12:06] LABS: CHLORIDE 94 MEQ/L (99-109); CREATININE 1.6 MG/DL (0.6-1.3); GFR ESTIMATE (CALCULATED) 32 mL/min/; GLUCOSE 100 mg/dL (70-99); POTASSIUM 3.1 MEQ/L (3.7-5.4); SODIUM 139 MEQ/L (136-147); UREA NITROGEN (BUN) 9 mg/dL (9-23)
[2017-04-09 16:40] VITALS: BP 136/67
[2017-04-09 17:09] VITALS: BP 134/60
== END 2017-04-09 17:18 | disposition home or self-care (01) ==
LOC: SDC 11:01
PROVIDERS: Surgery
PROC: 3E03317 Introduction of Other Thrombolytic into Peripheral Vein, Percutaneous Approach (ICD-10-PCS; principal; 2017-04-09)
PROC: 03180JD Bypass Left Brachial Artery to Upper Arm Vein with Synthetic Substitute, Open Approach (ICD-10-PCS; principal; 2017-04-09)
DX: T82.898A Other specified complication of vascular prosthetic devices, implants and grafts, initial encounter (principal); I12.0 Hypertensive chronic kidney disease with stage 5 chronic kidney disease or end stage renal disease; N18.6 End stage renal disease; Z99.2 Dependence on renal dialysis; J44.9 Chronic obstructive pulmonary disease, unspecified; Y83.2 Surgical operation with anastomosis, bypass or graft as the cause of abnormal reaction of the patient, or of later complication, without mention of misadventure at the time of the procedure
CPT/HCPCS: 71046; 80048; 85027; 87641; C1768; C2628; J0690; J1644; J2720; S0020

== ENCOUNTER 2017-04-23 16:55 | Inpatient (IN) | payer OTHER ==
[~2017-04-23] VITALS: Ht 162.6 cm; Wt 46.0 kg
[2017-04-23 17:23] LABS: BASOPHIL (%) 0 % (0-1); EOSINOPHIL (%) 0.1 % (0-5); HEMATOCRIT 33.3 % (36.0-46.0); HEMOGLOBIN 10.3 G/DL (11.9-15.5); IMMATURE GRANULOCYTE (%) 0.4 % (0.0-0.7); LYMPHOCYTE (%) 7.1 % (15-42); LYMPHOCYTE COUNT 0.5 K/uL (1.0-2.8); MCH 31.7 PG (29.0-34.0); MCHC 30.9 G/DL (30.0-36.0); MCV 102.5 FL (83-99); MONOCYTE (%) 10.2 % (3-12); MONOCYTE COUNT 0.8 K/uL (0-0.8); NEUTROPHIL (%) 82.2 % (45-76); NEUTROPHIL COUNT 6.3 K/uL (1.8-6.4); NRBC (%) 0.7 /100 WBC (0-0); PLATELET COUNT 253 K/uL (156-360); RBC DIS.WIDTH-CV 17.6 % (11.8-14.6); RED BLOOD COUNT 3.25 M/uL (3.80-5.20); WHITE BLOOD COUNT 7.6 K/uL (4.1-10.2)
[2017-04-23 17:33] LABS: CHLORIDE 96 mEq/L (99-109); POTASSIUM 5.1 mEq/L (3.7-5.4); SODIUM 135 mEq/L (136-147)
[2017-04-23 17:35] LABS: GLUCOSE 203 mg/dL (70-99)
[2017-04-23 17:36] LABS: TOTAL PROTEIN 6.2 g/dL (6.4-8.3)
[2017-04-23 17:37] LABS: TOTAL BILIRUBIN 0.9 mg/dL (0.0-1.0)
[2017-04-23 17:39] LABS: ALKALINE PHOSPHATASE 122 IU/L (3-129); CREATININE 5.6 mg/dL (0.6-1.3); GFR ESTIMATE (CALCULATED) 8 mL/min/
[2017-04-23 17:40] LABS: UREA NITROGEN (BUN) 57 mg/dL (9-23)
[2017-04-23 17:41] LABS: AST (GOT) 21 IU/L (2-34)
[2017-04-23 17:42] LABS: ALT (GPT) 10 IU/L (3-49)
[2017-04-23] MEDS ORDERED: TYLENOL REGULA325 MG PO (20:08)
[2017-04-23] MEDS ORDERED: CALCIUM ACETAT667 MG PO (20:12)
[2017-04-23] MEDS ORDERED: OXYGEN MC (20:17)
[2017-04-23 22:55] VITALS: BP 150/63
[2017-04-24 03:29] VITALS: BP 153/60
[2017-04-24 08:39] VITALS: BP 142/60
[2017-04-24 15:54] VITALS: BP 161/68
[2017-04-24 19:27] VITALS: BP 139/65
[2017-04-25 00:43] VITALS: BP 123/61
[2017-04-25 04:32] VITALS: BP 125/62
[2017-04-25 06:35] LABS: BASOPHIL (%) 0 % (0-1); EOSINOPHIL (%) 0.2 % (0-5); HEMATOCRIT 33.4 % (36.0-46.0); IMMATURE GRANULOCYTE (%) 0.5 % (0.0-0.7); LYMPHOCYTE (%) 8.9 % (15-42); LYMPHOCYTE COUNT 0.6 K/uL (1.0-2.8); MCH 31.7 PG (29.0-34.0); MCHC 29.9 G/DL (30.0-36.0); MONOCYTE (%) 13.1 % (3-12); MONOCYTE COUNT 0.8 K/uL (0-0.8); NEUTROPHIL (%) 77.3 % (45-76); NEUTROPHIL COUNT 4.8 K/uL (1.8-6.4); NRBC (%) 0.3 /100 WBC (0-0); PLATELET COUNT 226 K/uL (156-360); RBC DIS.WIDTH-CV 17.8 % (11.8-14.6); RBC DIS.WIDTH-SD 67.7 % (39-53); RED BLOOD COUNT 3.15 M/uL (3.80-5.20); WHITE BLOOD COUNT 6.2 K/uL (4.1-10.2)
[2017-04-25 06:50] LABS: INTER. NORMALIZED RATIO 1.4
[2017-04-25 06:53] LABS: PTT 27.3 SEC (25-37)
[2017-04-25 07:09] VITALS: BP 149/67
[2017-04-25 15:21] LABS: TYPE OF FLUID PLEURAL
[2017-04-25 15:35] VITALS: BP 138/63
[2017-04-25 15:58] LABS: BODY FLUID GLUCOSE 230 MG/DL; BODY FLUID LDH 120 IU/L
[2017-04-25 16:08] LABS: APPEARANCE SL. HAZY-YELLOW; BODY FLUID EOSINOPHILS 0 % (0-25); BODY FLUID RBC'S < 1000 /MM^3 (0-100); BODY FLUID WBC'S 116 /MM^3 (0-500); MONONUCLEAR WBC'S 55 %; POLYNUCLEAR WBC'S 45 % (0-25)
[2017-04-25 16:55] LABS: BODY FLUID PROTEIN < 3.0 G/DL
[2017-04-25 20:30] VITALS: BP 147/67
[2017-04-26 00:13] VITALS: BP 135/60
[2017-04-26 07:19] VITALS: BP 141/63
[2017-04-26 09:33] LABS: BASOPHIL (%) 0 % (0-1); EOSINOPHIL (%) 0.7 % (0-5); HEMATOCRIT 32.4 % (36.0-46.0); HEMOGLOBIN 9.5 G/DL (11.9-15.5); IMMATURE GRANULOCYTE (%) 0.4 % (0.0-0.7); LYMPHOCYTE (%) 8.8 % (15-42); LYMPHOCYTE COUNT 0.5 K/uL (1.0-2.8); MCH 30.7 PG (29.0-34.0); MCHC 29.3 G/DL (30.0-36.0); MCV 104.9 FL (83-99); MONOCYTE (%) 11.1 % (3-12); MONOCYTE COUNT 0.6 K/uL (0-0.8); NEUTROPHIL COUNT 4.4 K/uL (1.8-6.4); NRBC (%) 0.5 /100 WBC (0-0); PLATELET COUNT 223 K/uL (156-360); RBC DIS.WIDTH-CV 17.5 % (11.8-14.6); RBC DIS.WIDTH-SD 65.6 % (39-53); RED BLOOD COUNT 3.09 M/uL (3.80-5.20); WHITE BLOOD COUNT 5.6 K/uL (4.1-10.2)
[2017-04-26 09:46] LABS: ALBUMIN 2.8 G/DL (3.2-4.8); CHLORIDE 95 MEQ/L (99-109); SODIUM 136 MEQ/L (136-147)
[2017-04-26 09:48] LABS: POTASSIUM 3.8 MEQ/L (3.7-5.4)
[2017-04-26 09:51] LABS: GFR ESTIMATE (CALCULATED) 9 mL/min/; GLUCOSE 170 mg/dL (70-99); UREA NITROGEN (BUN) 54 mg/dL (9-23)
[2017-04-26] MEDS ORDERED: DUONEB 2.5-0.5 M3 ML AEROSOL (14:31)
== END 2017-04-26 15:46 | DRG 189 ==
LOC: EME 16:55 → EDOF 21:14 → 2EAST 21:14 → ENRESERV 21:16 → 2EAST 22:43
PROVIDERS: Emergency Medicine; Family Medicine Sports Medicine; Internal Medicine Nephrology
PROC: 0W9B3ZZ Drainage of Left Pleural Cavity, Percutaneous Approach (ICD-10-PCS; principal; 2017-04-23)
PROC: 5A1D70Z Performance of Urinary Filtration, Intermittent, Less than 6 Hours Per Day (ICD-10-PCS; 2017-04-24)
PROC: 5A1D70Z Performance of Urinary Filtration, Intermittent, Less than 6 Hours Per Day (ICD-10-PCS; 2017-04-26)
DX: J96.01 Acute respiratory failure with hypoxia (principal); J90 Pleural effusion, not elsewhere classified; I13.2 Hypertensive heart and chronic kidney disease with heart failure and with stage 5 chronic kidney disease, or end stage renal disease; D63.1 Anemia in chronic kidney disease; N18.6 End stage renal disease; J44.1 Chronic obstructive pulmonary disease with (acute) exacerbation; J44.0 Chronic obstructive pulmonary disease with (acute) lower respiratory infection; J18.9 Pneumonia, unspecified organism; I50.22 Chronic systolic (congestive) heart failure; N17.9 Acute kidney failure, unspecified; I48.0 Paroxysmal atrial fibrillation; Z68.1 Body mass index [BMI] 19.9 or less, adult; R62.7 Adult failure to thrive; N28.1 Cyst of kidney, acquired; E78.5 Hyperlipidemia, unspecified; E11.22 Type 2 diabetes mellitus with diabetic chronic kidney disease; K21.9 Gastro-esophageal reflux disease without esophagitis; K27.9 Peptic ulcer, site unspecified, unspecified as acute or chronic, without hemorrhage or perforation; M19.90 Unspecified osteoarthritis, unspecified site; I35.0 Nonrheumatic aortic (valve) stenosis; W18.30XA Fall on same level, unspecified, initial encounter; Y95 Nosocomial condition; Z99.2 Dependence on renal dialysis; Z91.81 History of falling; Z93.3 Colostomy status; Z90.49 Acquired absence of other specified parts of digestive tract; Z87.01 Personal history of pneumonia (recurrent); Z87.11 Personal history of peptic ulcer disease; Z79.899 Other long term (current) drug therapy; Z72.0 Tobacco use; Z79.51 Long term (current) use of inhaled steroids; Z79.01 Long term (current) use of anticoagulants
CPT/HCPCS: 32555; 71046; 71250; 80053; 80069; 81003; 82945; 83615 91; 84157; 85025; 85610; 85730; 87070; 87075; 87116; 87205; 87206; 87502; 88108; 88305; 89051; 94640; 94640 76; 94799; 99202; 99281; 99285; J1644; J7512

== ENCOUNTER 2017-05-15 01:24 | Inpatient (IN) | payer OTHER ==
[~2017-05-15] VITALS: Ht 162.6 cm; Wt 47.1 kg
[~2017-05-15 01:24] MED LIST changes: +DUONEB 2.5-0.5 M3 ML AEROSOL
[2017-05-15 02:19] LABS: CHLORIDE 97 mEq/L (99-109); POTASSIUM 2.9 mEq/L (3.7-5.4)
[2017-05-15 02:20] LABS: HEMATOCRIT 33.2 % (36.0-46.0); HEMOGLOBIN 10.4 G/DL (11.9-15.5); MCH 31.8 PG (29.0-34.0); MCHC 31.3 G/DL (30.0-36.0); RBC DIS.WIDTH-CV 16.6 % (11.8-14.6); RBC DIS.WIDTH-SD 62.6 % (39-53); RED BLOOD COUNT 3.27 M/uL (3.80-5.20); SODIUM 132 mEq/L (136-147); WHITE BLOOD COUNT 10.4 K/uL (4.1-10.2)
[2017-05-15 02:22] LABS: GLUCOSE 210 mg/dL (70-99); MCV 101.5 FL (83-99)
[2017-05-15 02:25] LABS: CREATININE 6.8 mg/dL (0.6-1.3); GFR ESTIMATE (CALCULATED) 6 mL/min/
[2017-05-15 02:26] LABS: UREA NITROGEN (BUN) 79 mg/dL (9-23)
[2017-05-15 04:04] LABS: HEMATOLOGY COMMENT 1 SN; PLAT.SUFFICIENCY DECREASED
[2017-05-15 05:14] LABS: PLATELET COUNT 73 K/uL (156-360)
[2017-05-15 05:50] VITALS: BP 126/63
[2017-05-15 11:31] VITALS: BP 117/60
[2017-05-15] MEDS ORDERED: DUONEB 2.5-0.5 M3 ML AEROSOL (13:32)
[2017-05-15] MEDS ORDERED: RANITIDINE HCL300 M1 PO (13:34)
[2017-05-15] MEDS ORDERED: FUROSEMIDE40 MG PO (13:34)
[2017-05-15] MEDS ORDERED: KLOR-CON M2020 MEQ PO (13:37)
[2017-05-15] MEDS ORDERED: DULCOLAX10 MG PR (13:41)
[2017-05-15] MEDS ORDERED: SPIRIVA RESPIMAT4 GM IH (13:41)
[2017-05-15] MEDS ORDERED: FLEET MINERAL133 ML PR (13:42)
[2017-05-15] MEDS ORDERED: MILK OF MAGN PO (13:43)
[2017-05-15] MEDS ORDERED: IMODIUM A-D2 M2 PO (13:43)
[2017-05-15 18:53] LABS: CHLORIDE 98 MEQ/L (99-109); GLUCOSE 169 mg/dL (70-99); SODIUM 135 MEQ/L (136-147); UREA NITROGEN (BUN) 43 mg/dL (9-23)
[2017-05-15 19:11] LABS: CREATININE 4.3 MG/DL (0.6-1.3); GFR ESTIMATE (CALCULATED) 10 mL/min/; POTASSIUM 4.1 MEQ/L (3.7-5.4)
[2017-05-15 20:30] VITALS: BP 136/63
[2017-05-16 00:25] VITALS: BP 105/54
[2017-05-16 04:00] VITALS: BP 122/58
[2017-05-16 05:37] LABS: HEMATOCRIT 32.2 % (36.0-46.0); HEMOGLOBIN 9.9 G/DL (11.9-15.5); MCH 31.8 PG (29.0-34.0); MCHC 30.7 G/DL (30.0-36.0); MCV 103.5 FL (83-99); RBC DIS.WIDTH-CV 17.2 % (11.8-14.6); RBC DIS.WIDTH-SD 65.7 % (39-53); RED BLOOD COUNT 3.11 M/uL (3.80-5.20); WHITE BLOOD COUNT 9.8 K/uL (4.1-10.2)
[2017-05-16 05:53] LABS: IMM.PLATELET FRACTION 6.2 (1-7)
[2017-05-16 05:56] LABS: PLATELET COUNT 48 K/uL (156-360)
[2017-05-16 06:05] LABS: CHLORIDE 99 MEQ/L (99-109); CREATININE 4.8 MG/DL (0.6-1.3); GFR ESTIMATE (CALCULATED) 9 mL/min/; POTASSIUM 3.6 MEQ/L (3.7-5.4); SODIUM 136 MEQ/L (136-147); UREA NITROGEN (BUN) 46 mg/dL (9-23)
[2017-05-16 06:10] LABS: GLUCOSE 99 mg/dL (70-99)
[2017-05-16 09:06] LABS: VANCOMYCIN, TROUGH 12.8 MCG/ML (10-20)
[2017-05-16 16:24] VITALS: BP 122/61
[2017-05-16 19:00] VITALS: BP 108/54
[2017-05-16 23:17] VITALS: BP 107/56
[2017-05-17 03:31] VITALS: BP 114/56
[2017-05-17 05:39] LABS: BASOPHIL (%) 0.1 % (0-1); EOSINOPHIL (%) 0.5 % (0-5); HEMATOCRIT 33.1 % (36.0-46.0); HEMOGLOBIN 9.8 G/DL (11.9-15.5); IMMATURE GRANULOCYTE (%) 0.7 % (0.0-0.7); LYMPHOCYTE COUNT 0.4 K/uL (1.0-2.8); MCH 30.5 PG (29.0-34.0); MCHC 29.6 G/DL (30.0-36.0); MCV 103.1 FL (83-99); MONOCYTE (%) 5.8 % (3-12); MONOCYTE COUNT 0.5 K/uL (0-0.8); NEUTROPHIL (%) 87.9 % (45-76); NEUTROPHIL COUNT 7.8 K/uL (1.8-6.4); RBC DIS.WIDTH-CV 17.4 % (11.8-14.6); RBC DIS.WIDTH-SD 66.6 % (39-53); RED BLOOD COUNT 3.21 M/uL (3.80-5.20); WHITE BLOOD COUNT 8.8 K/uL (4.1-10.2)
[2017-05-17 06:04] LABS: ALBUMIN 2.2 G/DL (3.2-4.8); CHLORIDE 101 MEQ/L (99-109); GLUCOSE 107 mg/dL (70-99); POTASSIUM 3.5 MEQ/L (3.7-5.4); SODIUM 138 MEQ/L (136-147); UREA NITROGEN (BUN) 25 mg/dL (9-23)
[2017-05-17 06:05] LABS: CREATININE 3.6 MG/DL (0.6-1.3); GFR ESTIMATE (CALCULATED) 13 mL/min/; PHOSPHORUS 2.5 mg/dL (2.5-4.9)
[2017-05-17 06:15] LABS: IMM.PLATELET FRACTION 5.1 (1-7); PLAT.SUFFICIENCY DECREASED; PLATELET COUNT 45 K/uL (156-360)
[2017-05-17 08:45] VITALS: BP 134/61
[2017-05-17 12:33] VITALS: BP 117/58
[2017-05-17 16:48] VITALS: BP 145/65
[2017-05-17 19:00] VITALS: BP 150/65
[2017-05-17 23:47] VITALS: BP 120/60
[2017-05-18] VITALS (11 sets, daily range): BP systolic 125–146; BP diastolic 59–68
[2017-05-18 06:16] LABS: ALBUMIN 2.3 G/DL (3.2-4.8); CHLORIDE 98 MEQ/L (99-109); CREATININE 4.8 MG/DL (0.6-1.3); GFR ESTIMATE (CALCULATED) 9 mL/min/; GLUCOSE 129 mg/dL (70-99); POTASSIUM 3.4 MEQ/L (3.7-5.4); SODIUM 133 MEQ/L (136-147); UREA NITROGEN (BUN) 38 mg/dL (9-23)
[2017-05-19 00:40] VITALS: BP 129/63
[2017-05-19 01:30] VITALS: BP 143/62
[2017-05-19 04:01] VITALS: BP 140/67
[2017-05-19 08:46] LABS: BASOPHIL (%) 0 % (0-1); EOSINOPHIL (%) 0.3 % (0-5); HEMATOCRIT 32.3 % (36.0-46.0); HEMOGLOBIN 9.8 G/DL (11.9-15.5); IMMATURE GRANULOCYTE (%) 0.3 % (0.0-0.7); LYMPHOCYTE (%) 7.3 % (15-42); LYMPHOCYTE COUNT 0.5 K/uL (1.0-2.8); MCH 31.5 PG (29.0-34.0); MCHC 30.3 G/DL (30.0-36.0); MCV 103.9 FL (83-99); MONOCYTE (%) 6.6 % (3-12); MONOCYTE COUNT 0.5 K/uL (0-0.8); NEUTROPHIL (%) 85.5 % (45-76); NEUTROPHIL COUNT 5.9 K/uL (1.8-6.4); NRBC (%) 0.3 /100 WBC (0-0); RBC DIS.WIDTH-CV 17.2 % (11.8-14.6); RBC DIS.WIDTH-SD 65.6 % (39-53); RED BLOOD COUNT 3.11 M/uL (3.80-5.20)
[2017-05-19 08:49] LABS: PLATELET COUNT 90 K/uL (156-360)
[2017-05-19 08:50] LABS: ALBUMIN 2.6 G/DL (3.2-4.8); CHLORIDE 99 MEQ/L (99-109); POTASSIUM 3.5 MEQ/L (3.7-5.4); SODIUM 134 MEQ/L (136-147)
[2017-05-19 08:56] LABS: CREATININE 5.6 MG/DL (0.6-1.3); GFR ESTIMATE (CALCULATED) 8 mL/min/; PHOSPHORUS 3.2 mg/dL (2.5-4.9); UREA NITROGEN (BUN) 48 mg/dL (9-23)
[2017-05-19 08:59] LABS: GLUCOSE 201 mg/dL (70-99)
[2017-05-19 15:38] VITALS: BP 147/72
[2017-05-19 19:55] VITALS: BP 140/65
[2017-05-20] VITALS (7 sets, daily range): BP systolic 136–149; BP diastolic 60–66
[2017-05-20 06:26] LABS: BASOPHIL (%) 0.1 % (0-1); EOSINOPHIL (%) 0.4 % (0-5); HEMATOCRIT 32.8 % (36.0-46.0); HEMOGLOBIN 9.7 G/DL (11.9-15.5); IMMATURE GRANULOCYTE (%) 0.6 % (0.0-0.7); LYMPHOCYTE (%) 8.8 % (15-42); LYMPHOCYTE COUNT 0.6 K/uL (1.0-2.8); MCH 31.1 PG (29.0-34.0); MCHC 29.6 G/DL (30.0-36.0); MCV 105.1 FL (83-99); MONOCYTE (%) 6.7 % (3-12); MONOCYTE COUNT 0.5 K/uL (0-0.8); NEUTROPHIL (%) 83.4 % (45-76); NEUTROPHIL COUNT 5.9 K/uL (1.8-6.4); PLATELET COUNT 80 K/uL (156-360); RBC DIS.WIDTH-SD 65.4 % (39-53); RED BLOOD COUNT 3.12 M/uL (3.80-5.20)
[2017-05-20 07:32] LABS: CHLORIDE 99 MEQ/L (99-109); GFR ESTIMATE (CALCULATED) 12 mL/min/; POTASSIUM 3.9 MEQ/L (3.7-5.4); SODIUM 137 MEQ/L (136-147); UREA NITROGEN (BUN) 26 mg/dL (9-23)
[2017-05-20 07:36] LABS: CREATININE 3.8 MG/DL (0.6-1.3); GLUCOSE 118 mg/dL (70-99)
[2017-05-20 08:43] LABS: FOLIC ACID (FOLATE) 11.9 NG/ML (5.0-22.0)
[2017-05-21 03:23] VITALS: BP 143/63
[2017-05-21 05:42] LABS: BASOPHIL (%) 0.1 % (0-1); EOSINOPHIL (%) 0.1 % (0-5); HEMATOCRIT 32.9 % (36.0-46.0); HEMOGLOBIN 9.8 G/DL (11.9-15.5); IMMATURE GRANULOCYTE (%) 0.6 % (0.0-0.7); LYMPHOCYTE (%) 9.1 % (15-42); LYMPHOCYTE COUNT 0.7 K/uL (1.0-2.8); MCH 31.2 PG (29.0-34.0); MCHC 29.8 G/DL (30.0-36.0); MCV 104.8 FL (83-99); MONOCYTE (%) 7.1 % (3-12); MONOCYTE COUNT 0.5 K/uL (0-0.8); NEUTROPHIL COUNT 5.9 K/uL (1.8-6.4); PLATELET COUNT 91 K/uL (156-360); RBC DIS.WIDTH-CV 16.8 % (11.8-14.6); RBC DIS.WIDTH-SD 64.1 % (39-53); RED BLOOD COUNT 3.14 M/uL (3.80-5.20); WHITE BLOOD COUNT 7.2 K/uL (4.1-10.2)
[2017-05-21 06:49] LABS: CHLORIDE 96 MEQ/L (99-109); GFR ESTIMATE (CALCULATED) 9 mL/min/; GLUCOSE 157 mg/dL (70-99); SODIUM 134 MEQ/L (136-147)
[2017-05-21 06:51] LABS: UREA NITROGEN (BUN) 40 mg/dL (9-23)
[2017-05-21 07:45] VITALS: BP 134/98
[2017-05-21 12:31] VITALS: BP 138/64
[2017-05-21 16:15] VITALS: BP 129/64
[2017-05-21 19:27] VITALS: BP 145/67
[2017-05-22] VITALS (8 sets, daily range): BP systolic 123–149; BP diastolic 58–80
[2017-05-23 04:33] VITALS: BP 139/63
[2017-05-23 08:00] VITALS: BP 107/53
[2017-05-23 11:07] VITALS: BP 116/59
[2017-05-23 14:36] LABS: BASOPHIL (%) 0 % (0-1); EOSINOPHIL (%) 0.2 % (0-5); HEMATOCRIT 28.2 % (36.0-46.0); HEMOGLOBIN 8.5 G/DL (11.9-15.5); IMMATURE GRANULOCYTE (%) 0.2 % (0.0-0.7); LYMPHOCYTE (%) 4.2 % (15-42); LYMPHOCYTE COUNT 0.3 K/uL (1.0-2.8); MCH 31.5 PG (29.0-34.0); MCHC 30.1 G/DL (30.0-36.0); MCV 104.4 FL (83-99); MONOCYTE (%) 2.5 % (3-12); MONOCYTE COUNT 0.2 K/uL (0-0.8); NEUTROPHIL (%) 92.9 % (45-76); NEUTROPHIL COUNT 5.5 K/uL (1.8-6.4); PLATELET COUNT 85 K/uL (156-360); RBC DIS.WIDTH-CV 16.8 % (11.8-14.6); RBC DIS.WIDTH-SD 64.3 % (39-53); WHITE BLOOD COUNT 5.9 K/uL (4.1-10.2)
[2017-05-23 14:52] LABS: CHLORIDE 98 MEQ/L (99-109); POTASSIUM 3.8 MEQ/L (3.7-5.4); SODIUM 132 MEQ/L (136-147)
[2017-05-23 14:58] LABS: CREATININE 4.6 MG/DL (0.6-1.3); GFR ESTIMATE (CALCULATED) 10 mL/min/; GLUCOSE 143 mg/dL (70-99); UREA NITROGEN (BUN) 45 mg/dL (9-23)
[2017-05-23 20:00] VITALS: BP 143/63
[2017-05-23 23:49] VITALS: BP 133/60
[2017-05-24 03:18] VITALS: BP 133/63
[2017-05-24 07:26] VITALS: BP 130/61
[2017-05-24] MEDS ORDERED: ANCEF,KEFZOL1 GM IV (10:05)
[2017-05-24] MEDS ORDERED: LISINOPRIL5 MG PO (10:07)
[2017-05-24] MEDS ORDERED: EMLA TP (10:08)
[2017-05-24] MEDS ORDERED: SANTYL30 GM TP (10:08)
[2017-05-24 12:03] VITALS: BP 130/50
== END 2017-05-24 17:13 | DRG 314 ==
LOC: EME 01:24 → EDOF 04:06 → ENRESERV 04:07 → 5WEST 05:41
PROVIDERS: Emergency Medicine; Hospitalist; Internal Medicine Hematology & Oncology; Internal Medicine Nephrology
PROC: 5A1D70Z Performance of Urinary Filtration, Intermittent, Less than 6 Hours Per Day (ICD-10-PCS; principal; 2017-05-15)
PROC: 02PYX3Z Removal of Infusion Device from Great Vessel, External Approach (ICD-10-PCS; 2017-05-17)
PROC: 30233R1 Transfusion of Nonautologous Platelets into Peripheral Vein, Percutaneous Approach (ICD-10-PCS; 2017-05-18)
DX: T82.7XXA Infection and inflammatory reaction due to other cardiac and vascular devices, implants and grafts, initial encounter (principal); L03.313 Cellulitis of chest wall; A41.01 Sepsis due to Methicillin susceptible Staphylococcus aureus; I33.0 Acute and subacute infective endocarditis; E87.6 Hypokalemia; E83.51 Hypocalcemia; I13.2 Hypertensive heart and chronic kidney disease with heart failure and with stage 5 chronic kidney disease, or end stage renal disease; N18.6 End stage renal disease; N17.9 Acute kidney failure, unspecified; J96.01 Acute respiratory failure with hypoxia; J44.1 Chronic obstructive pulmonary disease with (acute) exacerbation; I50.23 Acute on chronic systolic (congestive) heart failure; I48.0 Paroxysmal atrial fibrillation; D69.6 Thrombocytopenia, unspecified; E11.22 Type 2 diabetes mellitus with diabetic chronic kidney disease; E11.621 Type 2 diabetes mellitus with foot ulcer; L97.519 Non-pressure chronic ulcer of other part of right foot with unspecified severity; I42.9 Cardiomyopathy, unspecified; L89.152 Pressure ulcer of sacral region, stage 2; S51.811A Laceration without foreign body of right forearm, initial encounter; T82.510A Breakdown (mechanical) of surgically created arteriovenous fistula, initial encounter; Y83.8 Other surgical procedures as the cause of abnormal reaction of the patient, or of later complication, without mention of misadventure at the time of the procedure; I27.20 Pulmonary hypertension, unspecified; I07.1 Rheumatic tricuspid insufficiency; D63.1 Anemia in chronic kidney disease; E78.5 Hyperlipidemia, unspecified; I35.0 Nonrheumatic aortic (valve) stenosis; K21.9 Gastro-esophageal reflux disease without esophagitis; Y71.2 Prosthetic and other implants, materials and accessory cardiovascular devices associated with adverse incidents; R26.9 Unspecified abnormalities of gait and mobility; Z99.2 Dependence on renal dialysis; Z79.01 Long term (current) use of anticoagulants; Z87.01 Personal history of pneumonia (recurrent); Z87.11 Personal history of peptic ulcer disease; Z87.891 Personal history of nicotine dependence; Z93.3 Colostomy status; Z90.49 Acquired absence of other specified parts of digestive tract; Z98.84 Bariatric surgery status
CPT/HCPCS: 71046; 80048; 80048 91; 80069; 80202; 81003; 82607; 82746; 83605; 84134; 85025; 85027; 86850; 86900; 86901; 87040; 87077; 87147; 87186; 87801; 93005; 93306; 94640; 94640 76; 94667; 94799; 99281; 99285; A6214; J0610; J0690; J1200; J1644; J2543; J3370; J3480; J7040; J7050; J7512; P9035

== ENCOUNTER 2017-06-18 15:08 | Inpatient (IN) | payer OTHER ==
[~2017-06-18] VITALS: Ht 162.6 cm; Wt 43.7 kg
[~2017-06-18 15:08] MED LIST changes: +ANCEF,KEFZOL1 GM IV; +DULCOLAX10 MG PR; +EMLA TP; +FLEET MINERAL133 ML PR; +GABAPENTIN300 MG PO; +IMODIUM A-D2 M2 PO; +KLOR-CON M2020 MEQ PO; +MILK OF MAGN PO; +RANITIDINE HCL300 M1 PO; +SPIRIVA1 INHALATI IH
[2017-06-18 16:48] LABS: BASOPHIL (%) 0.1 % (0-1); EOSINOPHIL (%) 0 % (0-5); HEMATOCRIT 34.8 % (36.0-46.0); HEMOGLOBIN 10.3 G/DL (11.9-15.5); IMMATURE GRANULOCYTE (%) 0.8 % (0.0-0.7); LYMPHOCYTE (%) 3.6 % (15-42); LYMPHOCYTE COUNT 0.4 K/uL (1.0-2.8); MCH 29.9 PG (29.0-34.0); MCHC 29.6 G/DL (30.0-36.0); MONOCYTE (%) 4.9 % (3-12); MONOCYTE COUNT 0.6 K/uL (0-0.8); NEUTROPHIL (%) 90.6 % (45-76); NEUTROPHIL COUNT 10.3 K/uL (1.8-6.4); PLATELET COUNT 216 K/uL (156-360); RBC DIS.WIDTH-SD 63.2 % (39-53); RED BLOOD COUNT 3.45 M/uL (3.80-5.20); WHITE BLOOD COUNT 11.3 K/uL (4.1-10.2)
[2017-06-18 16:49] LABS: MCV 100.9 FL (83-99)
[2017-06-18 16:56] LABS: ALBUMIN 2.4 g/dL (3.2-4.8); CHLORIDE 95 mEq/L (99-109); POTASSIUM 3.3 mEq/L (3.7-5.4); SODIUM 138 mEq/L (136-147)
[2017-06-18 16:58] LABS: GLUCOSE 94 mg/dL (70-99); TOTAL PROTEIN 5.7 g/dL (6.4-8.3)
[2017-06-18 17:00] LABS: TOTAL BILIRUBIN 0.3 mg/dL (0.0-1.0)
[2017-06-18 17:02] LABS: ALKALINE PHOSPHATASE 114 IU/L (3-129); CREATININE 2.9 mg/dL (0.6-1.3); GFR ESTIMATE (CALCULATED) 16 mL/min/
[2017-06-18 17:03] LABS: UREA NITROGEN (BUN) 23 mg/dL (9-23)
[2017-06-18 17:04] LABS: AST (GOT) 11 IU/L (2-34)
[2017-06-18 17:05] LABS: ALT (GPT) < 3 IU/L (3-49)
[2017-06-18] MEDS ORDERED: FOLIC ACID1 MG PO (19:14)
[2017-06-18] MEDS ORDERED: CELEXA10 MG PO (19:14)
[2017-06-18] MEDS ORDERED: LISINOPRIL5 MG PO (19:16)
[2017-06-18] MEDS ORDERED: LIDOCAINE-PRIL1 EACH TP (19:16)
[2017-06-18] MEDS ORDERED: PENTOXIFYLLINE400 MG PO (19:17)
[2017-06-18] MEDS ORDERED: TYLENOL REGULA325 MG PO (19:19)
[2017-06-18 21:38] VITALS: BP 103/51
[2017-06-19 00:10] VITALS: BP 123/58
[2017-06-19 04:15] VITALS: BP 131/59
[2017-06-19 06:32] LABS: BASOPHIL (%) 0.1 % (0-1); EOSINOPHIL (%) 0.2 % (0-5); HEMOGLOBIN 9.6 G/DL (11.9-15.5); LYMPHOCYTE (%) 3.9 % (15-42); LYMPHOCYTE COUNT 0.4 K/uL (1.0-2.8); MCH 29.1 PG (29.0-34.0); MCHC 28.2 G/DL (30.0-36.0); MONOCYTE (%) 7.1 % (3-12); MONOCYTE COUNT 0.7 K/uL (0-0.8); NEUTROPHIL (%) 87.7 % (45-76); NEUTROPHIL COUNT 9.2 K/uL (1.8-6.4); PLATELET COUNT 228 K/uL (156-360); RBC DIS.WIDTH-CV 17.1 % (11.8-14.6); RBC DIS.WIDTH-SD 64.3 % (39-53); WHITE BLOOD COUNT 10.5 K/uL (4.1-10.2)
[2017-06-19 07:08] LABS: CHLORIDE 102 MEQ/L (99-109); GFR ESTIMATE (CALCULATED) 13 mL/min/; GLUCOSE 101 mg/dL (70-99); POTASSIUM 3.4 MEQ/L (3.7-5.4); SODIUM 144 MEQ/L (136-147); UREA NITROGEN (BUN) 31 mg/dL (9-23)
[2017-06-19 07:10] LABS: CREATININE 3.6 MG/DL (0.6-1.3)
[2017-06-19 07:40] VITALS: BP 128/62
[2017-06-19 15:32] VITALS: BP 145/61
[2017-06-19 20:15] VITALS: BP 132/62
[2017-06-20 00:41] VITALS: BP 130/65
[2017-06-20 03:56] VITALS: BP 130/60
[2017-06-20 06:35] LABS: VANCOMYCIN, TROUGH 13.3 MCG/ML (10-20)
[2017-06-20 06:38] LABS: CREATININE 4.6 MG/DL (0.6-1.3)
[2017-06-20 08:46] LABS: BASOPHIL (%) 0 % (0-1); EOSINOPHIL (%) 0.4 % (0-5); HEMATOCRIT 27.7 % (36.0-46.0); IMMATURE GRANULOCYTE (%) 0.5 % (0.0-0.7); LYMPHOCYTE (%) 4.4 % (15-42); LYMPHOCYTE COUNT 0.5 K/uL (1.0-2.8); MCH 29.5 PG (29.0-34.0); MCHC 28.9 G/DL (30.0-36.0); MCV 102.2 FL (83-99); MONOCYTE (%) 5.6 % (3-12); MONOCYTE COUNT 0.6 K/uL (0-0.8); NEUTROPHIL (%) 89.1 % (45-76); NEUTROPHIL COUNT 9.5 K/uL (1.8-6.4); PLATELET COUNT 218 K/uL (156-360); RBC DIS.WIDTH-CV 17.4 % (11.8-14.6); RBC DIS.WIDTH-SD 64.8 % (39-53); RED BLOOD COUNT 2.71 M/uL (3.80-5.20); WHITE BLOOD COUNT 10.6 K/uL (4.1-10.2)
[2017-06-20 09:04] LABS: CHLORIDE 100 MEQ/L (99-109); CREATININE 4.2 MG/DL (0.6-1.3); GFR ESTIMATE (CALCULATED) 11 mL/min/; GLUCOSE 145 mg/dL (70-99); PHOSPHORUS 4.3 mg/dL (2.5-4.9); POTASSIUM 3.3 MEQ/L (3.7-5.4); UREA NITROGEN (BUN) 41 mg/dL (9-23)
[2017-06-20 09:05] LABS: SODIUM 136 MEQ/L (136-147)
[2017-06-20 13:58] LABS: HEMATOCRIT 31.1 % (36.0-46.0); HEMOGLOBIN 8.8 G/DL (11.9-15.5); MCH 29.3 PG (29.0-34.0); MCHC 28.3 G/DL (30.0-36.0); MCV 103.7 FL (83-99); PLATELET COUNT 198 K/uL (156-360); RBC DIS.WIDTH-CV 17.3 % (11.8-14.6); RBC DIS.WIDTH-SD 65.4 % (39-53); WHITE BLOOD COUNT 9.8 K/uL (4.1-10.2)
[2017-06-20 15:54] VITALS: BP 121/56
[2017-06-20 19:36] VITALS: BP 141/62
[2017-06-20 23:06] VITALS: BP 112/49
[2017-06-21 03:55] VITALS: BP 100/44
[2017-06-21 06:28] LABS: CHLORIDE 100 MEQ/L (99-109); GFR ESTIMATE (CALCULATED) 18 mL/min/; POTASSIUM 3.6 MEQ/L (3.7-5.4); SODIUM 138 MEQ/L (136-147)
[2017-06-21 06:30] LABS: BASOPHIL (%) 0.1 % (0-1); EOSINOPHIL (%) 0.3 % (0-5); HEMATOCRIT 30.2 % (36.0-46.0); HEMOGLOBIN 8.4 G/DL (11.9-15.5); IMMATURE GRANULOCYTE (%) 0.6 % (0.0-0.7); LYMPHOCYTE (%) 6.2 % (15-42); LYMPHOCYTE COUNT 0.6 K/uL (1.0-2.8); MCH 28.9 PG (29.0-34.0); MCHC 27.8 G/DL (30.0-36.0); MCV 103.8 FL (83-99); MONOCYTE (%) 7.6 % (3-12); MONOCYTE COUNT 0.7 K/uL (0-0.8); NEUTROPHIL (%) 85.2 % (45-76); NEUTROPHIL COUNT 7.7 K/uL (1.8-6.4); PLATELET COUNT 209 K/uL (156-360); RBC DIS.WIDTH-CV 17.3 % (11.8-14.6); RED BLOOD COUNT 2.91 M/uL (3.80-5.20); WHITE BLOOD COUNT 9.1 K/uL (4.1-10.2)
[2017-06-21 06:35] LABS: CREATININE 2.7 MG/DL (0.6-1.3); GLUCOSE 95 mg/dL (70-99); UREA NITROGEN (BUN) 20 mg/dL (9-23)
[2017-06-21 07:22] VITALS: BP 119/59
[2017-06-21 15:44] VITALS: BP 123/58
[2017-06-22 00:07] VITALS: BP 127/59
[2017-06-22 07:58] VITALS: BP 125/58
[2017-06-22 15:45] VITALS: BP 128/60
[2017-06-22 23:54] VITALS: BP 123/58
[2017-06-23 08:04] LABS: BASOPHIL (%) 0.1 % (0-1); EOSINOPHIL (%) 0.5 % (0-5); EOSINOPHIL COUNT 0.1 K/uL (0-0.3); HEMATOCRIT 28.4 % (36.0-46.0); HEMOGLOBIN 8.2 G/DL (11.9-15.5); IMMATURE GRANULOCYTE (%) 0.5 % (0.0-0.7); LYMPHOCYTE (%) 6.4 % (15-42); LYMPHOCYTE COUNT 0.6 K/uL (1.0-2.8); MCH 29.3 PG (29.0-34.0); MCHC 28.9 G/DL (30.0-36.0); MCV 101.4 FL (83-99); MONOCYTE (%) 7.6 % (3-12); MONOCYTE COUNT 0.7 K/uL (0-0.8); NEUTROPHIL (%) 84.9 % (45-76); PLATELET COUNT 246 K/uL (156-360); RBC DIS.WIDTH-CV 17.5 % (11.8-14.6); WHITE BLOOD COUNT 9.4 K/uL (4.1-10.2)
[2017-06-23 08:26] LABS: ALBUMIN 2.1 G/DL (3.2-4.8); CHLORIDE 100 MEQ/L (99-109); GFR ESTIMATE (CALCULATED) 9 mL/min/; GLUCOSE 111 mg/dL (70-99); PHOSPHORUS 5.7 mg/dL (2.5-4.9); POTASSIUM 4.2 MEQ/L (3.7-5.4); SODIUM 137 MEQ/L (136-147); UREA NITROGEN (BUN) 40 mg/dL (9-23)
[2017-06-23 08:27] LABS: CREATININE 4.8 MG/DL (0.6-1.3)
[2017-06-23 13:36] VITALS: BP 136/62
[2017-06-23 14:15] LABS: HEPATITIS B SURFACE ANTIGEN Nonreactive
[2017-06-23 15:30] VITALS: BP 129/58
[2017-06-23 23:13] VITALS: BP 134/63
[2017-06-24 05:33] LABS: BASOPHIL (%) 0.1 % (0-1); EOSINOPHIL (%) 0.3 % (0-5); HEMATOCRIT 30.7 % (36.0-46.0); HEMOGLOBIN 8.6 G/DL (11.9-15.5); IMMATURE GRANULOCYTE (%) 0.5 % (0.0-0.7); LYMPHOCYTE (%) 5.9 % (15-42); LYMPHOCYTE COUNT 0.5 K/uL (1.0-2.8); MCH 28.4 PG (29.0-34.0); MCV 101.3 FL (83-99); MONOCYTE (%) 9.2 % (3-12); MONOCYTE COUNT 0.8 K/uL (0-0.8); NEUTROPHIL COUNT 7.2 K/uL (1.8-6.4); PLATELET COUNT 249 K/uL (156-360); RBC DIS.WIDTH-CV 17.2 % (11.8-14.6); RBC DIS.WIDTH-SD 64.2 % (39-53); RED BLOOD COUNT 3.03 M/uL (3.80-5.20); WHITE BLOOD COUNT 8.6 K/uL (4.1-10.2)
[2017-06-24 06:05] LABS: CHLORIDE 97 MEQ/L (99-109); GFR ESTIMATE (CALCULATED) 15 mL/min/; GLUCOSE 86 mg/dL (70-99); POTASSIUM 3.9 MEQ/L (3.7-5.4); SODIUM 136 MEQ/L (136-147); UREA NITROGEN (BUN) 21 mg/dL (9-23)
[2017-06-24 06:09] LABS: CREATININE 3.2 MG/DL (0.6-1.3)
[2017-06-24 07:23] VITALS: BP 131/62
[2017-06-24 15:40] VITALS: BP 134/64
[2017-06-24 23:09] VITALS: BP 122/60
[2017-06-25 07:18] VITALS: BP 138/62
[2017-06-25 15:11] VITALS: BP 139/61
== END 2017-06-25 16:24 | disposition hospice, home (50) | DRG 867 ==
LOC: EME 15:08 → 3EAST 19:50 → EDOF 19:50 → ENRESERV 19:59 → 3EAST 21:15
PROVIDERS: Emergency Medicine; Family Medicine; Family Medicine Sports Medicine; Internal Medicine Nephrology
PROC: 0H9MXZZ Drainage of Right Foot Skin, External Approach (ICD-10-PCS; principal; 2017-06-18)
PROC: 5A1D70Z Performance of Urinary Filtration, Intermittent, Less than 6 Hours Per Day (ICD-10-PCS; 2017-06-20)
DX: A48.0 Gas gangrene (principal); N18.6 End stage renal disease; I50.23 Acute on chronic systolic (congestive) heart failure; E11.52 Type 2 diabetes mellitus with diabetic peripheral angiopathy with gangrene; I13.2 Hypertensive heart and chronic kidney disease with heart failure and with stage 5 chronic kidney disease, or end stage renal disease; I42.9 Cardiomyopathy, unspecified; L03.115 Cellulitis of right lower limb; I70.269 Atherosclerosis of native arteries of extremities with gangrene, unspecified extremity; Z68.1 Body mass index [BMI] 19.9 or less, adult; D72.829 Elevated white blood cell count, unspecified; M81.0 Age-related osteoporosis without current pathological fracture; E73.9 Lactose intolerance, unspecified; I50.9 Heart failure, unspecified; E78.5 Hyperlipidemia, unspecified; I48.0 Paroxysmal atrial fibrillation; I35.0 Nonrheumatic aortic (valve) stenosis; I25.10 Atherosclerotic heart disease of native coronary artery without angina pectoris; J44.9 Chronic obstructive pulmonary disease, unspecified; E11.42 Type 2 diabetes mellitus with diabetic polyneuropathy; S91.302A Unspecified open wound, left foot, initial encounter; E11.22 Type 2 diabetes mellitus with diabetic chronic kidney disease; K21.9 Gastro-esophageal reflux disease without esophagitis; S91.301A Unspecified open wound, right foot, initial encounter; N28.1 Cyst of kidney, acquired; D63.1 Anemia in chronic kidney disease; L98.499 Non-pressure chronic ulcer of skin of other sites with unspecified severity; E87.6 Hypokalemia; Z66 Do not resuscitate; Z93.3 Colostomy status; Z79.01 Long term (current) use of anticoagulants; Z99.2 Dependence on renal dialysis; Z51.5 Encounter for palliative care; Z79.899 Other long term (current) drug therapy; Z87.01 Personal history of pneumonia (recurrent); Z87.891 Personal history of nicotine dependence; Z90.49 Acquired absence of other specified parts of digestive tract; Z87.11 Personal history of peptic ulcer disease
CPT/HCPCS: 73630; 80048; 80053; 80069; 80202; 82565; 83605; 85025; 85027; 87040; 87070; 87075; 87077; 87186; 87205; 87340; 93880; 93925; 94640; 94640 76; 94760; 94799; 99202; 99281; 99285; A6214; J1270; J2543; J3370; J7050; J7512